=== PATIENT | male | born 1955 | race Caucasian/White ===

== ENCOUNTER 2025-06-18 10:59 | Inpatient (IN) | payer MEDICARE, SELFPAY ==
--- NOTE | ~2025-06-18 | CT_ITS ---
CT HEAD NON-CONTRAST Clinical History: AMS Comparison: None Technique: Unenhanced axial images skull base to vertex Coronal, sagittal reformats CT images acquired with automatic exposure control for dose reduction DLP: 605 mGy-cm Findings: Sulci, ventricles: Unremarkable. No intracerebral hemorrhage. No evidence acute territorial infarct. No mass effect, midline shift. Bony calvarium intact. Visualized paranasal sinuses: Clear. Mastoid air cells: Clear. IMPRESSION: 1. No acute intracranial findings. Reviewed, dictated and finalized at location R.
--- NOTE | ~2025-06-18 | US_ITS ---
US renal BI 06/18/2025 17:52 Procedure: Realtime transabdominal ultrasound of the kidneys and bladder. Indication: Renal failure Comparison: No prior studies for comparison. Findings: Renal echotexture is normal bilaterally without hydronephrosis, contour deforming mass or renal calculus. The right kidney measures 9.9 cm and left kidney measures 11 cm. Bladder within normal limits. Impression: 1: Unremarkable renal ultrasound. No stones, masses or hydronephrosis. Reviewed, dictated and finalized at location O. Impression: 1: Unremarkable renal ultrasound. No stones, masses or hydronephrosis.
--- NOTE | ~2025-06-18 | CT_ITS ---
EXAMINATION: CTA chest PE abdomen pel DATE: 06/18/2025 13:06 INDICATION: Weakness following long drive TECHNIQUE: Computed tomography (CT) pulmonary angiogram of the chest was performed with 100 mL Omnipaque-350 intravenous contrast. Additional 3D reconstructions utilizing coronal maximum intensity projection (MIP) were performed. CT of the abdomen and pelvis was performed with intravenous contrast utilizing the same contrast bolus following a short delay. Automated exposure control and iterative reconstruction technique were employed. The dose-length product was 1870.34 mGy-cm. COMPARISON: None FINDINGS: Chest: No pulmonary embolism.Mild emphysema. Mild dependent atelectasis in both lungs. Indeterminate 8-9 mm right lower lobe nodule. There are multiple additional smaller subpleural nodules, one in the lingula measuring 5 mm, 2 in the right middle lobe measuring 3-4 mm and one in the left lower lobe measuring 4-5 mm. No pneumonia, pulmonary edema, pleural effusion or pneumothorax. Heart size is normal. No pericardial effusion. Thoracic aorta is normal caliber with no dissection. No pathologically enlarged thoracic lymphadenopathy. Moderate thoracic spondylosis with bridging osteophytes at multiple levels consistent with diffuse idiopathic skeletal hyperostosis (DISH). Abdomen/pelvis: Cholecystectomy clips at the gallbladder fossa. Moderate atrophy at the upper pole of the left kidney. There are a few subcentimeter low-attenuation bilateral renal cysts. Splenomegaly measuring 15.5 cm in maximal length. Moderate fatty atrophy of the pancreas. Bilateral adrenal glands are normal. Bladder is normal. Mild prostatomegaly measuring 4.6 x 3.7 cm. Bowels including the appendix are normal. No free intraperitoneal gas or fluid. Severe lumbosacral and moderate lumbar spondylosis. IMPRESSION: 1. No pulmonary embolism, other acute cardiopulmonary disease or acute intra- abdominal/pelvic process. 2. Mild emphysema with several scattered pulmonary nodules the largest measuring 8-9 mm in the right lower lobe. Recommend 3 month follow-up low-dose noncontrast chest CT. Correlation with any prior outside imaging if available would also be helpful. 3. Splenomegaly. 4. Prostatomegaly. Reviewed, dictated and finalized at location A. IMPRESSION: 1. No pulmonary embolism, other acute cardiopulmonary disease or acute intra-ab dominal/pelvic process. 2. Mild emphysema with several scattered pulmonary nodules the largest measurin g 8-9 mm in the right lower lobe. Recommend 3 month follow-up low-dose noncontr ast chest CT. Correlation with any prior outside imaging if available would als o be helpful. 3. Splenomegaly. 4. Prostatomegaly.
--- NOTE | ~2025-06-18 | XR_ITS ---
EXAMINATION: XR chest 1V portable COMPARISON: No comparisons available. HISTORY: AMS FINDINGS: The lungs are clear, no effusion. No pneumothorax. Heart is normal size. Mediastinal and hilar contours are within normal limits. Bony thorax no acute abnormality. Miscellaneous: None Impression: No acute cardiopulmonary abnormality. Reviewed, dictated and finalized at location A. Impression: No acute cardiopulmonary abnormality.
[2025-06-18 11:01] VITALS: BP 158/67; PULSE 115; RESP 13; TEMP 36.7; O2SAT 98
--- NOTE | 2025-06-18 11:16 | ECG_ITS ---
Test Date: 2025-06-18 11:41:08 Measurements Intervals [place] Rate: 104 P: 30 [place]: 158 QRS: -15 QRSD: 82 T: 42 QT: 317 QTc: 419 Interpretive Statements SINUS TACHYCARDIA CONSIDER PREVIOUS INFERIOR INFARCTION ABNORMAL ECG No previous ECG available for comparison Electronically Signed On 06-18-2025 12:37:33 CDT by Connor Hess M.D.
[2025-06-18 11:52] LABS: Fractional Inspired Oxygen 21 %; HCO3 VBG 22.1 mEq/l (24.0-30.0); PCO2 VBG 39.0 mmHg (42.0-48.0); PO2 VBG 28.3 mmHg (35.0-45.0); pH VBG 7.371 (7.300-7.400)
[2025-06-18 11:58] LABS: Liters per Minute 0.0 LPM
[2025-06-18 12:03] LABS: Hematocrit 30.0 % (42.0-52.0); Hemoglobin 9.8 g/dL (14.0-18.0); Immature Granulocyte Percent A 0.7 % (0-0.5); Lymphocytes Absolute Auto 0.58 K/mm3 (0.9-3.2); Mean Corpuscular HGB Conc 32.7 g/dl (32-36); Mean Corpuscular Hemoglobin 31.4 pg (26-34); Mean Corpuscular Volume 96.2 fl (80-100); Nucleated Red Blood Cells Absolute Auto 0.000 K/mm3 (0.0-0.012); Nucleated Red Blood Cells Perc 0.0 % (0.0-0.2); Platelet Count Result 253 k/mm3 (150-375); Red Blood Count 3.12 M/mm3 (4.6-6.20); White Blood Count 10.4 K/mm3 (4.5-10.0)
[2025-06-18] MEDS: SODIUM CHLORIDE 0.9% IV 1,000 ML 999 ML IV CONT (12:07)
[2025-06-18 12:21] LABS: INR 1.2; Prothrombin Time 15.1 Seconds (11.1-14.7)
[2025-06-18 12:22] LABS: Partial Thromboplastin Time 28.5 Seconds (22.3-36.8)
[2025-06-18 12:39] LABS: Alanine Aminotransferase 23 U/L (6-50); Albumin Level 3.9 g/dL (3.5-5.1); Alkaline Phosphatase 164 U/L (38-126); Anion Gap 11 mmol/L (4-12); Aspartate Amino Transferase 70 U/L (17-59); Bilirubin,Total 1.0 mg/dL (0.2-1.3); Blood Urea Nitrogen 40 mg/dL (9-20); Calcium 8.7 mg/dL (8.4-10.2); Carbon Dioxide 23 mmol/L (22-30); Chloride 98 mmol/L (98-107); Estimated CRCL calculation 28 ml/min; Estimated Glomerular Filt Rate 27; Glucose 473 mg/dL (65-110); Lipase 43 U/L (23-300); Magnesium 2.2 mg/dL (1.6-2.3); Potassium 4.4 mmol/L (3.4-5.0); Sodium 132 mmol/L (137-145); Total Protein 7.9 g/dL (6.3-8.2)
[2025-06-18 12:39] LABS: Influenza A QL RT-PCR Negative (Negative); Influenza B QL RT-PCR Negative (Negative); RSV RNA, RT-PCR Negative (Negative); SARS-CoV-2 RNA PCR Negative (Negative)
[2025-06-18 12:49] LABS: Troponin I < 0.012 ng/mL (0.000-0.034)
--- OUTSIDE RECORDS SUMMARY | 2025-06-18 12:58 | XMS_ITS | Encounter Summary ---
Author Organization [facility] Address [address] [place] [id number] Care Team Providers Care Microfilm Camera Operator Name Role Phone Arthru Powers MD Primary Care Provider [phone] Bethel Bailey MD Unavailable [phone] Reason for Visit * Reason Comments V Scheduling Outreach Encounter Details Date Type Department Care Team ([facility] st Contact Info) Description 12/28/2022 [facility] [address] [place] [address] Arthur Powers MD [address] [place] [address] [facility] Scheduling Outreach Social History Tobacco Use Types Packs/Day Years Used Date Smoking Tobacco: Every Day Cigarettes 0.8 35 Smokeless Tobacco: Never Alcohol Use Standard Drinks/Week Comments No 0 (1 standard drink = 0.6 oz pur e alcohol) PHQ-2 Answer Date Recorded Initial depression screening score: 0 11/02/2022 Interpersonal Safety Answer Date Record ed RETIRE In the past year, hav e you ever been physically hurt, threatened, controlled or made to feel afraid by someone close to you? No 06/13/2020 RETIRE Currently, are you in a relationship where you are being physically hurt, threatened, controlled or made to feel afraid? No 06/13/2020 Inadequate Housing Answer Date Recorded Social Determinants: Housing (Overall Score Help er) 0 05/06/2019 Sex and Gender Information Value Date Recorded Sex Assigned at Not on file Legal Sex Male 6:56 PM CDT Gender Identity Not on file Sexual Orientation Not on file documented as of this encounter Functional Status * RETIRED Are you deaf or do you have serious difficulty hearing? Answer Date of Assessment Author No 06/20/2020 2:05 PM CDT Lita Morrow RN * RETIRED Are you blind or do you have serious difficulty seeing, even when wearing glasses? Answer Date of Assessment Author No 06/20/2020 2:05 PM CDT Lita Morrow RN documented as of this encounter Plan of Treatment Upcoming Encounters Date Type Department Care Team (Late st Contact Info) Description 07/16/2025 9:00 AM CDT Office Visit [facility] [address] [place] [address] Arthur Powers MD [address] [place], [place] [id number] documented as of this encounter Visit Diagnoses Not on filedocumented in this encounter Additional Health Concerns Assessment Noted Time A Body Mass Index follow-up plan has been documented for the patient 05/25/2022 8:51 AM CDT documented as of this encounter Care Teams Microfilm Camera Operator Relationship Specialty Start Date End Date Arthur Powers MD [address] [place] [address] PCP - General Internal Medicine 05/15/12 Bethel Bailey MD [address] [place] [address] Restaurant Assistant Manager Nephrology 05/01/19 Podiatry 09/09/15 documented as of this encounter
--- OUTSIDE RECORDS SUMMARY | 2025-06-18 12:58 | XMS_ITS | Encounter Summary ---
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); Type 2 diabetes mellitus with diabetic neuropathy, without long-term current use of insulin (CMD) Social History Tobacco Use Types Packs/Day Years Used Date Smoking Tobacco: Every Day Cigarettes 0.8 35 Smokeless Tobacco: Never Alcohol Use Standard Drinks/Week Comments No 0 (1 standard drink = 0.6 oz pur e alcohol) PHQ-2 Answer Date Recorded PHQ-2 Score 0 10/19/2019 Interpersonal Safety Answer Date Record ed RETIRE [...] Morrow RN documented as of this encounter Ordered Prescriptions Prescription Sig Dispense Quantity Refills Last Filled Start Date End Date acetaminophen-code ine (TYLENOL #4) 300-60 MG per tabletIndications: 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 Reorder 10/03/2020 10/06/2020 documented as of this encounter Additional Health Concerns Assessment Noted Time A Body Mass Index follow-up plan has been documented for the patient 10/19/2019 2:33 PM FACILITY WORKER documented as of this encounter Care Teams Health Care Sanitary Technician Relationship Specialty Start Date End Date Arthur Powers MD [address] [place] [address] PCP - General Internal Medicine 05/15/12 Bethel Bailey MD [address] [place] [address] [facility] 05/01/19 Podiatry 09/09/15 documented as of this encounter
--- OUTSIDE RECORDS SUMMARY | 2025-06-18 12:58 | XMS_ITS | Clinical Summary ---
Author Organization [facility] Address [address] [place] [id number] Care Team Providers Care Sandblaster Stone Name Role Phone Arthur Powers MD Primary Care Provider [phone] Bethel Bailey MD Unavailable [phone] Allergies Active Allergy Reactions Criticality Noted Date Comments Sulfamethoxazole W/Trimethoprim NAUSEA 02/04/2017 Celecoxib Hydrocodone Mobic Naproxen Nsaids Other (See Comments) 02/16/2017 D/t kidney function Prednisone Relafen Medications Lancet Devices (AUTO-LANCETS) MISC One Touch Delica Lancets. Test Blood Sugar Daily. 100 each 3 10/26/19 13 Active blood glucose (ONETOUCH VERIO) test strip Test blood sugar 2 times daily as directed. Diagnosis: E11.9. Meter: one touch verio 200 each 2 02/23/20 17 Active naLOXone (NARCAN) 4 MG/0.1ML nasal liquid Gage the content of 1 device into 1 nostril. Call 911. May repeat with 2nd device in alternate nostril if no response in 2-3 minutes. 2 each 1 06/13/20 24 Active ondansetron (Zofran) 4 MG tablet Take twice for nausea per prep instructions 2 tablet 07/05/20 24 Active Na Sulfate-K Sulfate-Mg Sulf (Suprep Bowel Prep Kit) 17.5-3.13-1.6 GM/177ML Solution Take 354 mLs by mouth as directed. 1 kit 09/06/20 24 Active sildenafil (VIAGRA) 100 MG tabletIndicati ons:Erectile dysfunction, unspecified erectile dysfunction type Take 1 tablet by mouth as needed for Erectile Dysfunction. 90 tablet 3 09/12/20 24 Active albuterol 108 (90 Base) MCG/ACT inhaler Inhale 2 puffs into the lungs every 4 hours as needed for Wheezing or Shortness of Breath. 1 each 10/08/19 25 Active furosemide (LASIX) 40 MG tablet Take 1 tablet by mouth daily. 90 tablet 3 03/26/20 25 Active acetaminophen- codeine (TYLENOL #4) 300-60 MG per tabletIndicati ons:Type 2 diabetes mellitus with diabetic neuropathy, without long-term current use of insulin (CMD),Rheumato id arthritis involving both shoulders with positive rheumatoid factor (CMD) TAKE 1 TABLET BY MOUTH THREE TIMES DAILY NEEDED FOR PAIN 90 tablet 04/30/20 25 Active metFORMIN (GLUCOPHAGE) 500 MG tabletIndicati ons:Type 2 diabetes mellitus with diabetic neuropathy, without long-term current use of insulin (CMD) TAKE 2 TABLETS BY MOUTH IN THE MORNING AND 1 TABLET IN THE EVENING 270 tablet 06/14/20 25 Active metFORMIN (GLUCOPHAGE) 500 MG tabletIndicati ons:Type 2 diabetes mellitus with diabetic neuropathy, without long-term current use of insulin (CMD) 2 tab (1000mg) in am 1 tab (500mg) in pm 270 tablet 1 12/19/19 25 025 Discontinued Active Problems Problem Noted Date Diagnosed Date Hyperkeratosis 03/07/2025 Assessment & Plan (03/07/2025 7:21 PM CDT): Advanced hyperkeratosis was debrided and then an Unna boot was applied to the leg Cellulitis of left lower extremity 03/07/2025 Assessment & Plan (03/07/2025 7:27 PM CDT): Monitor: The patient conditionnewly identified. Evaluation: Reviewed recent labs/diagnostic tests with the patient. Assessment/Treatment: Update treatment regimen per encounter note. Statin intolerance 12/18/2024 Assessment & Plan (12/18/2024 9:19 AM CDT): Monitor: The problem is unchanged. Evaluation: No labs/tests required today. Assessment/Treatment: Continue current treatment/monitoring regimen. Tophaceous gout 01/03/2024 Assessment & Plan (01/03/2024 11:02 AM CDT): Monitor: The problem is newly identified. Evaluation: Labs/tests ordered, see encounter summary. Assessment/Treatment: Update treatment regimen per encounter summary Open wound of right lower extremity 12/20/2023 Assessment & Plan (01/03/2024 5:16 PM CDT): Monitor: The problem is stable. Evaluation: No labs/tests required today. Assessment/Treatment: Continue current treatment/monitoring regimen. and Update treatment regimen per encounter summary Assessment & Plan (12/20/2023 11:18 AM CDT): Monitor: The problem is newly identified. Evaluation: No labs/tests required today. Assessment/Treatment: Update treatment regimen per encounter summary Fall at home 11/24/2023 Assessment & Plan (11/24/2023 12:42 PM [employer]): There is an area of abrasion which was debrided and cleaned up and a new dressing which included Silvadene and polymer dressing was applied. Other hyperlipidemia 09/22/2023 Assessment & Plan (03/26/2025 9:17 AM CDT): Monitor: The problem is unchanged. Evaluation: No labs/tests required today. Assessment/Treatment: Continue current treatment/monitoring regimen. Assessment & Plan (09/12/2024 4:36 PM [employer]): Monitor: The problem is unchanged. Evaluation: No labs/tests required today. Assessment/Treatment: Continue current treatment/monitoring regimen. Assessment & Plan (06/05/2024 9:12 AM CDT): Monitor: The problem is unchanged. Evaluation: No labs/tests required today. Assessment/Treatment: Continue current treatment/monitoring regimen. Assessment & Plan (09/22/2023 10:02 AM [employer]): Monitor: The problem is unchanged. Evaluation: No labs/tests required today. Assessment/Treatment: Continue current treatment/monitoring regimen. Stage 3b chronic kidney disease (CMD) 06/22/2023 Assessment & Plan (10/10/2024 11:09 AM [employer]): Monitor: The problem is stable. Evaluation: Reviewed recent labs/tests with the patient. Assessment/Treatment: Continue current treatment/monitoring regimen. Assessment & Plan (11/24/2023 12:39 PM [employer]): Monitor: The problem is stable. Evaluation: No labs/tests required today. Assessment/Treatment: Continue current treatment/monitoring regimen. Assessment & Plan (06/22/2023 5:34 PM CDT): Monitor: The problem is stable. Evaluation: No labs/tests required today. Assessment/Treatment: Continue current treatment/monitoring regimen. Venous stasis of lower extremity 06/01/2023 Assessment & Plan (03/11/2025 4:47 PM CDT): Monitor: The problem is unchanged. Evaluation: No labs/tests required today. Assessment/Treatment: Continue current treatment/monitoring regimen. Assessment & Plan (07/04/2023 7:38 PM CDT): Monitor: The problem is unchanged. Evaluation: No labs/tests required today. Assessment/Treatment: Continue current treatment/monitoring regimen. Assessment & Plan (06/22/2023 5:09 PM CDT): Application of Unna boot and compression bandage was described. The patient was informed of the nature of the procedure, risks and benefits, and agreed to proceed. Application of left Unna boots First the left leg(s) was(were) debrided and cleaned of necrotic tissue and the leg(s) was(were) prepped for application of the boot(s). Next a dome paste dressing was evenly applied to the leg(s). Open ulcers were packed and covered with polymer dressing as were areas where drainage through the skin was apparent. Next a soft dressing was applied. And finally Coban was applied. The patient was instructed on the care of the dressing, to call if there was any discomfort, skin color change, or excessive drainage. Patient was instructed to return within a week for inspection and possible reapplication. Assessment & Plan (06/01/2023 9:14 AM CDT): Improved, Unna boot Application of Unna boot and compression bandage was described. The patient was informed of the nature of the procedure, risks and benefits, and agreed to proceed. Application of left Unna boots First the left leg(s) was(were) debrided and cleaned of necrotic tissue and the leg(s) was(were) prepped for application of the boot(s). Next a dome paste dressing was evenly applied to the leg(s). Open ulcers were packed and covered with polymer dressing as were areas where drainage through the skin was apparent. Next a soft dressing was applied. And finally Coban was applied. The patient was instructed on the care of the dressing, to call if there was any discomfort, skin color change, or excessive drainage. Patient was instructed to return within a week for inspection and possible reapplication. Lymphedema of left leg 05/24/2023 Assessment & Plan (03/07/2025 7:27 PM CDT): Monitor: The patient conditionworsening. Evaluation: No diagnostic tests required today. Reviewed recent labs/diagnostic tests with the patient. Assessment/Treatment: Update treatment regimen per encounter note. Assessment & Plan (06/15/2023 8:51 AM CDT): Monitor: The problem is improving with treatment. Evaluation: No labs/tests required today. Assessment/Treatment: Update treatment regimen per encounter summary No unna boot today, leg debrided and dressed Assessment & Plan (05/24/2023 4:30 PM CDT): Monitor: The problem is worsening. Evaluation: No labs/tests required today. Assessment/Treatment: Unna boot applied Vasculogenic erectile dysfunction 11/16/2022 Assessment & Plan (11/16/2022 1:58 PM [employer]): Monitor: The problem is improving with treatment. Evaluation: No labs/tests required today. Assessment/Treatment: Continue current treatment/monitoring regimen. Codeine use disorder, moderate, dependence (CMD) 10/30/2021 Assessment & Plan (10/10/2024 11:09 AM [employer]): Monitor: The problem is stable. Evaluation: No labs/tests required today. Reviewed recent labs/tests with the patient. Assessment/Treatment: Continue current treatment/monitoring regimen. Assessment & Plan (11/24/2023 12:39 PM [employer]): Monitor: The problem is stable. Evaluation: No labs/tests required today. Assessment/Treatment: Continue current treatment/monitoring regimen. Assessment & Plan (11/02/2022 10:11 AM [employer]): Monitor: The problem is unchanged. Evaluation: No labs/tests required today. Assessment/Treatment: Continue current treatment/monitoring regimen. Assessment & Plan (10/30/2021 12:35 PM [employer]): Monitor: The problem is unchanged. Evaluation: No labs/tests required today. Assessment/Treatment: Continue current treatment/monitoring regimen. Stage 3a chronic kidney disease (CMD) 01/15/2021 Assessment & Plan (11/02/2022 10:11 AM [employer]): Monitor: The problem is stable. Evaluation: Reviewed recent labs/tests with the patient. Assessment/Treatment: Managed by specialist. Assessment & Plan (10/30/2021 12:15 PM [employer]): Monitor: The problem is unchanged. Evaluation: Labs/tests ordered, see encounter summary. Assessment/Treatment: Continue current treatment/monitoring regimen. Assessment & Plan (01/15/2021 12:08 PM CDT): Monitor: The patient's CKD is unchanged. Evaluation: No diagnostic tests required today. Assessment/Treatment: Continue current treatment/monitoring regimen. Continue current treatment regimen. Condition will be reassessed per progress note Nonspecific abnormal finding in stool contents 0 06/06/2020 Sebaceous cyst 12/18/2018 Pain, dental 12/20/2016 Venous stasis ulcer of leg without varicose vein s (CMD) 04/16/2014 Assessment & Plan (03/11/2025 4:49 PM CDT): Monitor: The problem is improving with treatment. Evaluation: No labs/tests required today. Assessment/Treatment: The Unna boot was removed, the leg was found to be much improved, some additional debridement of scales revealed healthy skin and no active drainage Assessment & Plan (10/10/2024 11:09 AM [employer]): Monitor: The problem is stable. Evaluation: No labs/tests required today. Assessment/Treatment: Continue current treatment/monitoring regimen. Assessment & Plan (11/24/2023 12:39 PM [employer]): Monitor: The problem is newly identified. Evaluation: No labs/tests required today. Assessment/Treatment: Continue current treatment/monitoring regimen. Assessment & Plan (07/04/2023 7:39 PM CDT): Monitor: The problem is improving with treatment. Evaluation: No labs/tests required today. Assessment/Treatment: Update treatment regimen per encounter summary Application of Unna boot and compression bandage was described. The patient was informed of the nature of the procedure, risks and benefits, and agreed to proceed. Application of right Unna boots First the right leg(s) was(were) debrided and cleaned of necrotic tissue and the leg(s) was(were) prepped for application of the boot(s). Next a dome paste dressing was evenly applied to the leg(s). Open ulcers were packed and covered with polymer dressing as were areas where drainage through the skin was apparent. Next a soft dressing was applied. And finally Coban was applied. The patient was instructed on the care of the dressing, to call if there was any discomfort, skin color change, or excessive drainage. Patient was instructed to return within a week for inspection and possible reapplication. Assessment & Plan (07/02/2023 9:45 AM CDT): Monitor: The problem is improving with treatment. Evaluation: No labs/tests required today. Assessment/Treatment: Application of Unna boot and compression bandage was described. The patient was informed of the nature of the procedure, risks and benefits, and agreed to proceed. Application of left Unna boots First the left leg(s) was(were) debrided and cleaned of necrotic tissue and the leg(s) was(were) prepped for application of the boot(s). Next a dome paste dressing was evenly applied to the leg(s). Open ulcers were packed and covered with polymer dressing as were areas where drainage through the skin was apparent. Next a soft dressing was applied. And finally Coban was applied. The patient was instructed on the care of the dressing, to call if there was any discomfort, skin color change, or excessive drainage. Patient was instructed to return within a week for inspection and possible reapplication. Assessment & Plan (06/06/2023 5:37 PM CDT): Monitor: The problem is improving with treatment. Evaluation: No labs/tests required today. Assessment/Treatment: Continue current treatment/monitoring regimen. Application of Unna boot and compression bandage was described. The patient was informed of the nature of the procedure, risks and benefits, and agreed to proceed. Application of left Unna boots First the left leg(s) was(were) debrided and cleaned of necrotic tissue and the leg(s) was(were) prepped for application of the boot(s). Next a dome paste dressing was evenly applied to the leg(s). Open ulcers were packed and covered with polymer dressing as were areas where drainage through the skin was apparent. Next a soft dressing was applied. And finally Coban was applied. The patient was instructed on the care of the dressing, to call if there was any discomfort, skin color change, or excessive drainage. Patient was instructed to return within a week for inspection and possible reapplication. Assessment & Plan (11/02/2022 10:11 AM [employer]): Monitor: The problem is unchanged. Evaluation: No labs/tests required today. Assessment/Treatment: Continue current treatment/monitoring regimen. Assessment & Plan (10/30/2021 12:17 PM [employer]): Monitor: The problem is improving with treatment. Evaluation: Labs/tests ordered, see encounter summary. Assessment/Treatment: Continue current treatment/monitoring regimen. Assessment & Plan (01/15/2021 12:08 PM CDT): Monitor: The patient's soft tissue ulcer is unchanged. Evaluation: No diagnostic tests required today. Assessment/Treatment: Continue current treatment/monitoring regimen. Condition will be reassessed per progress note Type 2 diabetes mellitus wit h diabetic neuropathy, without long-term current use of insulin (CMD) 05/15/2012 Assessment & Plan (03/26/2025 9:17 AM CDT): Monitor: The problem is stable. Evaluation: Labs/tests ordered, see encounter summary. Reviewed recent labs/tests with the patient. Assessment/Treatment: Continue current treatment/monitoring regimen. Assessment & Plan (03/11/2025 4:48 PM CDT): Monitor: The problem is stable. Evaluation: Reviewed recent labs/tests with the patient. Assessment/Treatment: Continue current treatment/monitoring regimen. Assessment & Plan (12/18/2024 9:20 AM CDT): Monitor: The problem is stable. Evaluation: Labs/tests ordered, see encounter summary. Reviewed recent labs/tests with the patient. Assessment/Treatment: Update treatment regimen per encounter summary Assessment & Plan (10/10/2024 11:09 AM [employer]): Monitor: The problem is stable. Evaluation: Reviewed recent labs/tests with the patient. Assessment/Treatment: Continue current treatment/monitoring regimen. Assessment & Plan (09/12/2024 4:39 PM [employer]): Monitor: The problem is stable. Evaluation: Reviewed recent labs/tests with the patient. Assessment/Treatment: Continue current treatment/monitoring regimen. Assessment & Plan (06/05/2024 9:15 AM CDT): Monitor: The problem is stable. Evaluation: Reviewed recent labs/tests with the patient. Assessment/Treatment: Continue current treatment/monitoring regimen. Assessment & Plan (01/03/2024 5:18 PM CDT): Monitor: The problem is stable. Evaluation: Reviewed recent labs/tests with the patient. Assessment/Treatment: Continue current treatment/monitoring regimen. Assessment & Plan (12/20/2023 11:21 AM CDT): Monitor: The problem is stable. Evaluation: No labs/tests required today. Assessment/Treatment: Continue current treatment/monitoring regimen. Assessment & Plan (09/22/2023 10:01 AM [employer]): Monitor: The problem is stable. Evaluation: Labs/tests ordered, see encounter summary. Reviewed recent labs/tests with the patient. Assessment/Treatment: Continue current treatment/monitoring regimen. Assessment & Plan (07/04/2023 7:38 PM CDT): Monitor: The problem is stable. Evaluation: No labs/tests required today. Assessment/Treatment: Continue current treatment/monitoring regimen. Assessment & Plan (06/22/2023 5:10 PM CDT): Monitor: The problem is unchanged. Evaluation: No labs/tests required today. Assessment/Treatment: Continue current treatment/monitoring regimen. Assessment & Plan (06/15/2023 8:50 AM CDT): Monitor: The problem is stable. Evaluation: No labs/tests required today. Reviewed recent labs/tests with the patient. Assessment/Treatment: Continue current treatment/monitoring regimen. Assessment & Plan (06/06/2023 5:36 PM CDT): Monitor: The problem is unchanged. Evaluation: No labs/tests required today. Assessment/Treatment: Continue current treatment/monitoring regimen. Assessment & Plan (06/01/2023 9:14 AM CDT): Monitor: The problem is unchanged. Evaluation: No labs/tests required today. Assessment/Treatment: Continue current treatment/monitoring regimen. Assessment & Plan (05/24/2023 4:28 PM CDT): Monitor: The problem is unchanged. Evaluation: No labs/tests required today. Assessment/Treatment: Continue current treatment/monitoring regimen Assessment & Plan (02/01/2023 9:14 AM CDT): Monitor: The problem is unchanged. Evaluation: Labs/tests ordered, see encounter summary. Reviewed recent labs/tests with the patient. Assessment/Treatment: Continue current treatment/monitoring regimen. Assessment & Plan (11/16/2022 1:42 PM [employer]): Monitor: The problem is stable. Evaluation: No labs/tests required today. Assessment/Treatment: Continue current treatment/monitoring regimen. Assessment & Plan (08/23/2022 10:10 AM [employer]): Monitor: The problem is unchanged. Evaluation: Reviewed recent labs/tests with the patient. Assessment/Treatment: Continue current treatment/monitoring regimen. Assessment & Plan (05/25/2022 8:48 AM CDT): Monitor: The problem is stable. Evaluation: Reviewed recent labs/tests with the patient. Assessment/Treatment: Continue current treatment/monitoring regimen. Hypertension Assessment & Plan (03/26/2025 9:17 AM CDT): Monitor: The problem is unchanged. Evaluation: No labs/tests required today. Assessment/Treatment: Continue current treatment/monitoring regimen. Assessment & Plan (03/11/2025 4:47 PM CDT): Monitor: The problem is unchanged. Evaluation: No labs/tests required today. Assessment/Treatment: Continue current treatment/monitoring regimen. Assessment & Plan (12/18/2024 9:19 AM CDT): Monitor: The problem is unchanged. Evaluation: labs/tests required today. Assessment/Treatment: Continue current treatment/monitoring regimen. Assessment & Plan (09/12/2024 4:39 PM [employer]): Monitor: The problem is unchanged. Evaluation: No labs/tests required today. Assessment/Treatment: Continue current treatment/monitoring regimen. Assessment & Plan (06/05/2024 9:12 AM CDT): Monitor: The problem is unchanged. Evaluation: No labs/tests required today. Assessment/Treatment: Continue current treatment/monitoring regimen. Assessment & Plan (09/22/2023 10:02 AM [employer]): Monitor: The problem is unchanged. Evaluation: No labs/tests required today. Assessment/Treatment: Continue current treatment/monitoring regimen. Assessment & Plan (06/30/2023 10:28 PM CDT): Monitor: The problem is unchanged. Evaluation: No labs/tests required today. Assessment/Treatment: Continue current treatment/monitoring regimen. Assessment & Plan (06/22/2023 5:09 PM CDT): Monitor: The problem is unchanged. Evaluation: No labs/tests required today. Assessment/Treatment: Continue current treatment/monitoring regimen. Assessment & Plan (06/15/2023 8:49 AM CDT): Monitor: The problem is unchanged. Evaluation: No labs/tests required today. Assessment/Treatment: Continue current treatment/monitoring regimen. Assessment & Plan (06/01/2023 9:15 AM CDT): Monitor: The problem is unchanged. Evaluation: No labs/tests required today. Assessment/Treatment: Continue current treatment/monitoring regimen. Assessment & Plan (05/24/2023 4:27 PM CDT): Monitor: The problem is unchanged. Evaluation: No labs/tests required today. Assessment/Treatment: Continue current treatment/monitoring regimen. Assessment & Plan (02/01/2023 9:12 AM CDT): Monitor: The problem is unchanged. Evaluation: No labs/tests required today. Assessment/Treatment: Continue current treatment/monitoring regimen. Assessment & Plan (11/16/2022 1:39 PM [employer]): Monitor: The problem is unchanged. Evaluation: No labs/tests required today. Assessment/Treatment: Continue current treatment/monitoring regimen. Assessment & Plan (08/23/2022 10:09 AM [employer]): Monitor: The problem is unchanged. Evaluation: No labs/tests required today. Assessment/Treatment: Continue current treatment/monitoring regimen. Assessment & Plan (05/25/2022 8:48 AM CDT): Monitor: The problem is unchanged. Evaluation: No labs/tests required today. Assessment/Treatment: Continue current treatment/monitoring regimen. Assessment & Plan (10/30/2021 12:15 PM [employer]): Monitor: The problem is unchanged. Evaluation: No labs/tests required today. Assessment/Treatment: Continue current treatment/monitoring regimen. RHA (rheumatoid arthritis) (CMD) Assessment & Plan (10/10/2024 11:09 AM [employer]): Monitor: The problem is stable. Evaluation: Reviewed recent labs/tests with the patient. Assessment/Treatment: Continue current treatment/monitoring regimen. Assessment & Plan (09/12/2024 4:40 PM [employer]): Monitor: The problem is stable. Evaluation: Reviewed recent labs/tests with the patient. Assessment/Treatment: Continue current treatment/monitoring regimen. Assessment & Plan (11/24/2023 12:39 PM [employer]): Monitor: The problem is stable. Evaluation: No labs/tests required today. Assessment/Treatment: Continue current treatment/monitoring regimen. Assessment & Plan (11/02/2022 10:11 AM [employer]): Monitor: The problem is unchanged. Evaluation: No labs/tests required today. Assessment/Treatment: Continue current treatment/monitoring regimen. Assessment & Plan (05/25/2022 8:48 AM CDT): Monitor: The problem is improving with treatment. Evaluation: No labs/tests required today. Assessment/Treatment: Continue current treatment/monitoring regimen. Assessment & Plan (10/30/2021 12:17 PM [employer]): Monitor: The problem is improving with treatment. Evaluation: No labs/tests required today. Assessment/Treatment: Continue current treatment/monitoring regimen. Assessment & Plan (01/15/2021 12:08 PM CDT): Monitor: The patient's autoimmune/connective tissue disorder is unchanged. Evaluation: No diagnostic tests required today. Assessment/Treatment: Continue current treatment/monitoring regimen. Condition will be reassessed per progress note Tobacco dependence Assessment & Plan (02/01/2023 9:12 AM CDT): Monitor: The problem is unchanged. Evaluation: No labs/tests required today. Assessment/Treatment: Reducing packs per week Resolved Problems Problem Noted Date Diagnosed Date Resolved Date Cellulitis and abscess of trunk 10/09/2018 06/06/2020 Productive cough 07/30/2017 12/29/2017 Acute pancreatitis (CMD) 02/22/201710/2016 Cellulitis and abscess of leg 01/31/2017 06/06/2020 Cellulitis 03/28/2014 12/29/2017 Back pain 09/21/2012 12/29/2017 Diabetic neuropathy (CMD) 08/21/2012 Cataract 06/06/2020 Encounters Date Type Department Care Team Description 06/14[facility] [place] [address] [place] [address] Arthur Powers MD Refill Request 04/30/2025 [facility] [place] [address] [place] [address] Arthur Powers MD Refill Request 03/27/2025 [facility] [address] [place] [address] Arthur Powers MD 03/26/2025 9:00 AM CDT [facility] [address] [place] [address] Arthur Powers MD Type 2 diabetes mellitus with diabetic neuropathy, without long-term current use of insulin (CMD) (Primary Dx); Primary hypertension; Other hyperlipidemia; Stage 3b chronic kidney disease (CMD) 03/19/2025 [facility] [address] [place] [address] Arthur Powers MD Refill Request from Last 3 Months Immunizations Immunization Administration Dates Next Due Influenza, split virus, quadrivalent, PF 016 Pneumococcal conjugate PCV20 11/02/2022 Surgical History Surgery Date Site/Laterality Comments OCCULT BLOOD TEST TUBE 02/13/2011 EYE SURGERY CHOLECYSTECTOMY CATARACT EXTRACTION W/ INTRAOCULAR LENS IMPLANT around 2009 Bilateral COLONOSCOPY 06/20/2020 COLONOSCOPY 09/11/2024 Medical History Medical History Date Comments Diabetes mellitus (CMD) Hypertension Tobacco dependence Degenerative joint disease Rheumatoid arthritis(714.0) Chronic kidney disease Chronic pain Diabetic neuropathy (CMD) 08/21/2012 Family History Medical History Relation Comments Cancer Father Cataracts Father Diabetes Father Hypertension Father Macular degeneration Father Osteoarthritis Father Diabetes Mother Hyperlipidemia Mother Relation Status Comments Father Mother Social History Tobacco Use Types Packs/Day Years Used Date Smoking Tobacco: Every Day Cigarettes 0.8 35 Smokeless Tobacco: Never Tobacco Cessation:Ready to Q uit: Not Asked; Counseling Given: Not Answered Alcohol Use Standard Drinks/Week Comments No 0 (1 standard drink = 0.6 oz pur e alcohol) PHQ-2 Answer Date Recorded Initial depression screening score: 0 10/10/2024 Inadequate Housing Answer Date Recorded Social Determinants: Housing (Overall Score Help er) 0 05/06/2019 Interpersonal Safety Answer Date Record ed How often does anyone, jessica irby family and friends, physically hurt you? Never 09/11/2024 How often does anyone, jessica irby family and friends, insult or talk down to you? Never 09/11/2024 How often does anyone, jessica irby family and friends, threaten you with harm? Never 09/11/2024 How often does anyone, jessica irby family and friends, scream or curse at you? Never 09/11/2024 Sex and Gender Information Value Date Recorded Sex Assigned at Not on file Legal Sex Male 6:56 PM CDT Gender Identity Not on file Sexual Orientation Not on file Obstetrics History Last Filed Vital Signs Vital Sign Reading Time Taken Comments Blood Pressure 126/80 03/26/2025 8:47 AM CDT Pulse 84 03/26/2025 8:47 AM CDT Temperature 36.5 C (97.7 F) 10/10/2024 10:42 AM [employer] Respiratory Rate 18 10/10/2024 10:42 AM [employer] Oxygen Saturation 99% 03/26/2025 8:47 AM CDT Inhaled Oxygen Concentration - - Weight 93.4 kg (206 lb) 03/26/2025 8:47 AM CDT Height 172.7 cm (5' 8) 03/26/2025 8:47 AM CDT Body Mass Index 31.32 03/26/2025 8:47 AM CDT Plan of Treatment Upcoming Encounters Date Type Department Care Team (Late st Contact Info) Description 07/16/2025 9:00 AM CDT Office Visit [facility] [place] [address] [place] [address] Arthur Powers MD [address] [place] [address] Health Maintenance Due Date Last Done Comments DTaP/Tdap/Td Vaccine (1 - Tdap) 02/07/1976 CT Colonography 2002 Sigmoidoscopy 2002 Lung Cancer Screening 2007 Shingles Vaccine (1 of 2) 2007 Hepatitis C Screening 02/07/2008 Respiratory Syncytial Virus (RSV) Vaccine 60+ (1 - Risk 60-74 years 1-dose series) 2017 Fecal Occult Blood 02/01/2019 02/01/2018, 0 01/17/2018, 10/12/2016, Additional history exists Diabetes Foot Exam 04/20/2020 04/20/2019 Diabetes Eye Exam 05/02/2021 05/02/2020, , 05/02/2020, Additional history exists Abdominal Aortic Aneurysm (AAA) Screening 2022 COVID-19 Vaccine ( season) 2025 01/08/2021, 12/18/2020 Traditional Medicare - Medicare Wellness Visit 05/27/2025 06/05/2024, 05/24/2023, 05/25/2022, Additional history exists Diabetes A1C or GMI 09/26/2025 03/26/2025, 12/18/2024, 06/05/2024, Additional history exists Depression Screening 10/10/2025 10/10/2024 Microalbumin Ratio 12/18/2025 12/18/2024, 12/18/2024 Cologuard 02/22/2026 02/22/2023, 01/26, 02/22/2023, Additional history exists GFR 03/26/2026 03/26/2025, 11/25, 06/05/2024, Additional history exists Colonoscopy 09/11/2029 09/11/2024 Colorectal Cancer Screening 09/11/2029 Pneumococcal Vaccine 50+ Completed 11/02/2022 HPV Vaccine (No Doses Required) Completed Hepatitis A Vaccine Aged Out No longe r eligible based on patient's age to complete this topic Hepatitis B Vaccine (For Physician/APC Discussion) Aged Out No longer elig ible based on patient's age to complete this topic Meningococcal Serogroup B Vaccine Aged Out No longer eligible based on patient's age to complete this topic Meningococcal Vaccine Aged Out No jhon saima eligible based on patient's age to complete this topic Medical Devices Implanted Type Area Design Draftsman Device Identifier Shelf Expiration Date Model / Serial / Lot Device Hmst Rsl 360 235cm 11mm 2.8mm Chnl - [id number] Implanted:Qty : 1 on 06/20/2020 by Robert Shaw MD at [facility] Other Implant N/A: Colon [employer] . [id number] 03/31/2023 [id number] / / [id number] Device Hmst Rsl 360 235cm 11mm 2.8mm Chnl - [id number] Implanted:Qty : 1 on 06/20/2020 by Robert Shaw MD at [facility] Other Implant N/A: Colon [employer] . [id number] 03/31/2023 [id number] / / [id number] Device Hmst Rsl 360 235cm 11mm 2.8mm Chnl - [id number] Implanted:Qty : 1 on 06/20/2020 by Robert Shaw MD at [facility] Other Implant N/A: Colon [employer] . [id number] 03/31/2023 [id number] / / [id number] Procedures Procedure Name Priority Date/Time Associated Diagnosis Comments GLYCOHEMOGLOBIN Routine 03/26/2025 9:48 AM CDT Type 2 diabetes mellitus with diabetic neuropathy, without long-term current use of insulin (CMD) COMPREHENSIVE METABOLIC PANEL Routine 03/26/2025 9:48 AM CDT Type 2 diabetes mellitus with diabetic neuropathy, without long-term current use of insulin (CMD) Stage 3b chronic kidney disease (CMD) ANNUAL WELLNESS VISIT SUBSEQUENT VISIT W PPS Routine 06/05/2024 12:59 PM CDT Medicare annual wellness visit, subsequent COLOGUARD Routine 02/22/2023 OCCULT BLOOD TEST TUBE Routine 3:54 PM CDT Positive fecal occult blood test from Last 3 Months or Most Recently Relevant to Health Maintenance Results * (ABNORMAL) Glycohemoglobin (03/26/2025 9:48 AM CDT) Hemoglobin A1C 7.2(H) 4.5 - 5.6 % 03/27/2025 1:19 AM CDT [facility] Comment: Diabetic Screening Non Diabetic: <5.7% Increased Risk: 5.7-6.4% Diagnostic For Diabetes: >6.4% Diabetic Control A1C% eAG mg/dL 6.0 126 6.5 140 7.0 154 7.5 169 8.0 183 8.5 197 9.0 212 9.5 226 10.0 240 Blood VENOUS BLOOD SPECIMEN / Unknown Venipuncture / Unknown 03/26/2025 9:48 AM CDT 03/26/2025 10:49 PM CDT us Arthur Powers MD BKR LAB BLOOD ORDERABLES Final R esult [facility] [address] * (ABNORMAL) Comprehensive Metabolic Panel (03/26/2025 9:48 AM CDT) Fasting Status 03/27/2025 12:37 PM [facility] Sodium 141 135 - 145 mmol/L 03/27/2025 12:37 PM [facility] Potassium 4.1 3.4 - 5.1 mmol/L 03/27/2025 12:37 PM [facility] Chloride 108 97 - 110 mmol/L 03/27/2025 12:37 PM [facility] Carbon Dioxide 24 21 - 32 mmol/L 03/27/2025 12:37 PM [facility] Anion Gap 13 7 - 19 mmol/L 03/27/2025 12:37 PM [facility] Glucose 146(H) 70 - 99 mg/dL 03/27/2025 12:37 PM [facility] BUN 21(H) 6 - 20 mg/dL 03/27/2025 12:37 PM [facility] Creatinine 1.70(H) 0.67 - 1.17 mg/dL 03/27/2025 12:37 PM [facility] Glomerular Filtration Rate 43(L) >=60 03/27/2025 12:37 PM [facility] Comment:eGFR 30-59 mL/min/1. 73m2 = Moderate decrease in kidney function. Stage 3 CKD (chronic kidney disease) or moderate kidney disease. Estimated GFR calculated using the CKD-EPI-R (2020) equation that does not include race in the creatinine calculation. BUN/Cr 12 7 - 25 03/27/2025 12:37 PM [facility] Calcium 8.4 8.4 - 10.2 mg/dL 03/27/2025 12:37 PM [facility] Bilirubin, Total 0.4 0.2 - 1.0 mg/dL 03/27/2025 12:37 PM [facility] GOT/AST 10 <=37 Units/L 03/27/2025 12:37 PM [facility] GPT/ALT 10 <64 Units/L 03/27/2025 12:37 PM [facility] Alkaline Phosphatase 124(H) 45 - 117 Units/L 03/27/2025 12:37 PM CDT [facility] Albumin 3.3(L) 3.4 - 5.0 g/dL 03/27/2025 12:37 PM CDT [facility] Protein, Total 6.5 6.4 - 8.2 g/dL 03/27/2025 12:37 PM CDT [facility] Globulin 3.2 2.0 - 4.0 g/dL 03/27/2025 12:37 PM CDT [facility] A/G Ratio 1.0 1.0 - 2.4 03/27/2025 12:37 PM CDT [facility] Blood VENOUS BLOOD SPECIMEN / Unknown Venipuncture / Unknown 03/26/2025 9:48 AM CDT 03/26/2025 10:49 PM CDT us Arthur Powers MD BKR LAB BLOOD ORDERABLES Final R esult Performing Organization Address City/[facility]/ZIP Co de Phone Number [facility] [address] * COLOGUARD (02/22/2023) COLOGUARD Abnormal us Ext Result Console LABORATORY - EXTERNAL Final R esult * Occult Blood Test Tube (02/01/2018 3:54 PM CDT) Fecal Occult Bld Immunochem NEGATIVE NEGATIVE [facility] STOOL SPECIMEN / Unknown 02/01/2018 3:54 PM CDT 02/09/2018 3:55 PM CDT us Arthur Powers MD BODY FLUIDS AND STOOLS ORDERABLE S Final Result Performing Organization Address City/[facility] Co de Phone Number [facility] [address] [place] [address] from Last 3 Months or Most Recently Relevant to Health Maintenance Insurance MEDICARE MEDICARE Advance Directives * Full Resuscitation (Latest Code Status on File) Date Activated Date Inactivated Comments 09/11/2024 11:55 AM 09/11/2024 4:34 PM * Full Resuscitation Date Activated Date Inactivated Comments 06/20/2020 1:55 PM 06/20/2020 6:22 PM Care Teams Sandblaster Stone Relationship Specialty Start Date End Date Arthur Powers MD [address] [place] [address] PCP - General Internal Medicine 05/15/12 Bethel Bailey MD [address] [place] [address] Device Processing Engineer Nephrology 05/01/19 Podiatry 09/09/15
[2025-06-18 13:05] LABS: Thyroid Stimulating Hormone Reflex 1.740 uIU/mL (0.465-4.68)
[2025-06-18 13:08] LABS: Creatine Kinase 4074 U/L (55-170)
--- NOTE | 2025-06-18 13:33 | ED.GENADULT ---
HPI - General Adult General Chief complaint: Recheck/Abnormal Lab/Rx Stated complaint: increased glucose Time Seen by Provider: 06/18/25 11:10 History of Present Illness HPI narrative: This is a 70-year-old male presenting for generalized weakness. Patient spent the last week in [place] with his gambling. They have been driving back home across the country and he has been weak throughout drive. Two days ago he was too weak to get out of his chair and EMS was called which helped him get up but he did not seek medical care. Today were staying at a hotel when he sat in the [facility] for 12 hours straight. He did not get up. The patient is A&O x3 although somnolent. He is denying headache fevers chest pain difficulty breathing abdominal pain or urinary symptoms. He denies use of drugs or alcohol. He is a diabetic has been taking his medications although he did not take them today. Related Data Home Medications ?Medication ?Instructions ?Recorded ?Confirmed ?Last Taken ?Type acetaminophen 300 mg-codeine 60 mg 1 tablet PO TID 06/18/25 06/18/25 06/17/25 History tablet furosemide 40 mg tablet (Lasix) 40 mg PO DAILY 06/18/25 06/18/25 06/17/25 History metformin 500 mg tablet 500 mg PO BID 06/18/25 06/18/25 06/17/25 History Allergies Allergy/AdvReac Type Severity Reaction Status Date / Time hydrocodone Allergy Mild Swelling Verified 06/18/25 12:12 ketorolac (From Toradol) Allergy Unknown Unknown Verified 06/18/25 12:12 NSAIDS (Non-Steroidal Allergy Unknown Unknown Verified 06/18/25 12:12 Anti-Inflamma Exam Narrative: APPEARANCE: Patient appears older than his stated age, somnolent Head: atraumatic. EYES: EOMI, NOSE: Atraumatic NECK: Trachea midline RESPIRATORY: No increased rate of breathing clear to auscultation CARDIOVASCULAR: Tachycardic no peripheral edema ABDOMINAL: Non-distended soft nontender MUSCULOSKELETAl: No obvious deformities NEURO: Alert. Moving 4/4 extremities SKIN:: Chronic appearing scaling changes to the lower extremities with some unstageable ulcerations to the toes, does not appear actively infected. No skin breakdown the sacrum. PSYCHIATRIC: somnolent Course Vital Signs Vital signs: Vital Signs Temperature 98.1 F 06/18/25 11:01 Pulse Rate 115 H 06/18/25 11:01 Respiratory Rate 13 06/18/25 11:01 Blood Pressure 158/67 H 06/18/25 11:01 Pulse Oximetry 98 06/18/25 11:01 Oxygen Delivery Room Air 06/18/25 11:01 Temperature 98.1 F 06/18/25 11:01 Pulse Rate 99 06/18/25 16:08 Respiratory Rate 18 06/18/25 16:08 Blood Pressure 127/82 06/18/25 16:08 Pulse Oximetry 97 06/18/25 16:08 Oxygen Delivery Room Air 06/18/25 11:01 Medical Decision Making MDM Narrative Medical decision making narrative: -Course: 70-year-old male presenting with 2 days of generalized weakness. Patient tachycardic on arrival. Given 30 cc/kilogram bolus with improvement in heart rate. Patient has no localizing symptoms to help guide the workup. sepsis workup obtained. Laboratory studies significant for a CPK of 4000. Creatinine is 2.4 with BUN of 40 although no baseline is available as the patient is from [place], [place]. Glucose elevated at 426 without evidence of DKA/HHS. Urine not indicative infection. Viral swabs negative. CTA chest abdomen pelvis did not reveal any defnitive cause of his weakness. CT head was negative. Troponin negative an EKG without ischemic changes. Viral swabs negative. On re-evaluation the patient is still very weak, unable to ambulate. He will be admitted the hospital rhabdomyolysis / dehydration / acute kidney injury. Pt started on 250cc/LR for rhabdomyolysis. -DDX includes but is not limited to: Sepsis pneumonia UTI dehydration bacteremia viral illness -Co-morbidities complicating care: Diabetes -Social determinants of health: Patient lives with his , he walks around his own house unassisted but must use a scooter for anything greater than 100 ft. Denies use of drugs or alcohol -Hx from independent Sources: With bedside Vital Signs Vital Signs: Vital Signs Temperature 98.1 F 06/18/25 11:01 Pulse Rate 115 H 06/18/25 11:01 Respiratory Rate 13 06/18/25 11:01 Blood Pressure 158/67 H 06/18/25 11:01 Pulse Oximetry 98 06/18/25 11:01 Oxygen Delivery Room Air 06/18/25 11:01 Temperature 98.1 F 06/18/25 11:01 Pulse Rate 99 06/18/25 16:08 Respiratory Rate 18 06/18/25 16:08 Blood Pressure 127/82 06/18/25 16:08 Pulse Oximetry 97 06/18/25 16:08 Oxygen Delivery Room Air 06/18/25 11:01 Lab Data 06/18/25 11:53 06/18/25 11:54 Labs: Lab Results 06/18/25 06/18/25 06/18/25 Range/Units 11:06 11:49 11:53 WBC 10.4 H (4.5-10.0) K/mm3 RBC 3.12 L (4.6-6.20) M/mm3 Hgb 9.8 L (14.0-18.0) g/dL Hct 30.0 L (42.0-52.0) % MCV 96.2 (80-100) fl MCH 31.4 (26-34) pg MCHC 32.7 (32-36) g/dl RDW 13.7 (11.5-14.5) % Plt Count 253 (150-375) k/mm3 MPV 9.5 (7.4-10.4) fl Immature Gran % (Auto) 0.7 H (0-0.5) % Neut % (Auto) 88.4 H (45.5-73.1) % Lymph % (Auto) 5.6 L (18.3-44.2) % [place] % (Auto) 4.8 (2.6-8.5) % Eos % (Auto) 0.3 (0-4.4) % Baso % (Auto) 0.2 (0.2-1.2) % Lymph # (Auto) 0.58 L (0.9-3.2) K/mm3 [place] # (Auto) 0.5 (0.1-0.6) K/mm3 Eos # (Auto) 0.0 (0-0.3) K/mm3 Baso # (Auto) 0.0 (0.0-0.1) K/mm3 Abs Immat Gran (auto) 0.07 H (0.00-0.031) K/mm3 Absolute Neuts (auto) 9.2 H (1.3-6.7) K/mm3 Absolute Nucleated RBC 0.000 (0.0-0.012) K/mm3 Nucleated RBC % 0.0 (0.0-0.2) % PT 15.1 H (11.1-14.7) Seconds INR 1.2 APTT 28.5 (22.3-36.8) Seconds Sodium (137-145) mmol/L Potassium (3.4-5.0) mmol/L Chloride (98-107) mmol/L Carbon Dioxide (22-30) mmol/L Anion Gap (4-12) mmol/L BUN (9-20) mg/dL Creatinine (0.7-1.3) mg/dL Estim Creat Clear Calc ml/min Estimated GFR (59 - ) Glucose (65-110) mg/dL POC Capillary Glucose 426 H (65-105) mg/dl Lactic Acid 1.5 (0.7-2.0) mmol/L Calcium (8.4-10.2) mg/dL Phosphorus (2.5-4.5) mg/dL Magnesium (1.6-2.3) mg/dL Total Bilirubin (0.2-1.3) mg/dL AST (17-59) U/L ALT (6-50) U/L Alkaline Phosphatase (38-126) U/L Total Creatine Kinase (55-170) U/L Troponin I (0.000-0.034) ng/mL Total Protein (6.3-8.2) g/dL Albumin (3.5-5.1) g/dL Lipase (23-300) U/L TSH (Reflex) 1.740 (0.465-4.68) uIU/mL Urine Color (Yellow) Urine Appearance (Clear) Urine pH (5.0-9.0) Ur Specific [place] (1.001-1.035) Urine Protein (Negative) mg/dL Urine Glucose (UA) (Negative) mg/dL Urine Ketones (Negative) mg/dL Ur Blood (Man) (Negative) Urine Nitrate (Negative) Urine Bilirubin (Negative) Urine Urobilinogen (<2.0) mg/dL Leukocyte Esterase Rfl (Negative) AP/UL Urine RBC (0-2) /hpf Urine WBC (0-3) /hpf Ur Squamous Epith Cells (Few) /hpf Urine Bacteria /hpf Urine Casts Urine Opiates Screen (Negative) Urine Methadone Screen (Negative) Ur Barbiturates Screen (Negative) Ur Phencyclidine Scrn (Negative) Ur Amphetamine Screen (Negative) U Benzodiazepines Scrn (Negative) Urine Cocaine Screen (Negative) U Cannabinoids Screen (Negative) Ethyl Alcohol < 10 (<10) mg/dL Influenza A (RT-PCR) Negative (Negative) Influenza B (RT-PCR) Negative (Negative) RSV (RT-PCR) Negative (Negative) SARS-CoV-2 RNA (RT-PCR) Negative (Negative) 06/18/25 06/18/25 06/18/25 Range/Units 11:54 13:46 14:40 WBC (4.5-10.0) K/mm3 RBC (4.6-6.20) M/mm3 Hgb (14.0-18.0) g/dL Hct (42.0-52.0) % MCV (80-100) fl MCH (26-34) pg MCHC (32-36) g/dl RDW (11.5-14.5) % Plt Count (150-375) k/mm3 MPV (7.4-10.4) fl Immature Gran % (Auto) (0-0.5) % Neut % (Auto) (45.5-73.1) % Lymph % (Auto) (18.3-44.2) % [place] % (Auto) (2.6-8.5) % Eos % (Auto) (0-4.4) % Baso % (Auto) (0.2-1.2) % Lymph # (Auto) (0.9-3.2) K/mm3 [place] # (Auto) (0.1-0.6) K/mm3 Eos # (Auto) (0-0.3) K/mm3 Baso # (Auto) (0.0-0.1) K/mm3 Abs Immat Gran (auto) (0.00-0.031) K/mm3 Absolute Neuts (auto) (1.3-6.7) K/mm3 Absolute Nucleated RBC (0.0-0.012) K/mm3 Nucleated RBC % (0.0-0.2) % PT (11.1-14.7) Seconds INR APTT (22.3-36.8) Seconds Sodium 132 L (137-145) mmol/L Potassium 4.4 (3.4-5.0) mmol/L Chloride 98 (98-107) mmol/L Carbon Dioxide 23 (22-30) mmol/L Anion Gap 11 (4-12) mmol/L BUN 40 H (9-20) mg/dL Creatinine 2.41 H (0.7-1.3) mg/dL Estim Creat Clear Calc 28 ml/min Estimated GFR 27 L (59 - ) Glucose 473 H (65-110) mg/dL POC Capillary Glucose (65-105) mg/dl Lactic Acid (0.7-2.0) mmol/L Calcium 8.7 (8.4-10.2) mg/dL Phosphorus 3.4 (2.5-4.5) mg/dL Magnesium 2.2 (1.6-2.3) mg/dL Total Bilirubin 1.0 (0.2-1.3) mg/dL AST 70 H (17-59) U/L ALT 23 (6-50) U/L Alkaline Phosphatase 164 H (38-126) U/L Total Creatine Kinase 4074 H (55-170) U/L Troponin I < 0.012 < 0.012 (0.000-0.034) ng/mL Total Protein 7.9 (6.3-8.2) g/dL Albumin 3.9 (3.5-5.1) g/dL Lipase 43 (23-300) U/L TSH (Reflex) (0.465-4.68) uIU/mL Urine Color Yellow (Yellow) Urine Appearance Clear (Clear) Urine pH 5.5 (5.0-9.0) Ur Specific [place]ort 1.020 (1.001-1.035) Urine Protein 2+ H (Negative) mg/dL Urine Glucose (UA) 3+ H (Negative) mg/dL Urine Ketones Trace H (Negative) mg/dL Ur Blood (Man) 3+ H (Negative) Urine Nitrate Negative (Negative) Urine Bilirubin Negative (Negative) Urine Urobilinogen 1.0 (<2.0) mg/dL Leukocyte Esterase Rfl Negative (Negative) AP/UL Urine RBC 0-2 (0-2) /hpf Urine WBC 0-5 (0-3) /hpf Ur Squamous Epith Cells None seen (Few) /hpf Urine Bacteria None seen /hpf Urine Casts 3-5 Urine Opiates Screen Positive A (Negative) Urine Methadone Screen Negative (Negative) Ur Barbiturates Screen Negative (Negative) Ur Phencyclidine Scrn Negative (Negative) Ur Amphetamine Screen Negative (Negative) U Benzodiazepines Scrn Negative (Negative) Urine Cocaine Screen Negative (Negative) U Cannabinoids Screen Negative (Negative) Ethyl Alcohol (<10) mg/dL Influenza A (RT-PCR) (Negative) Influenza B (RT-PCR) (Negative) RSV (RT-PCR) (Negative) SARS-CoV-2 RNA (RT-PCR) (Negative) 06/18/25 Range/Units 16:24 WBC (4.5-10.0) K/mm3 RBC (4.6-6.20) M/mm3 Hgb (14.0-18.0) g/dL Hct (42.0-52.0) % MCV (80-100) fl MCH (26-34) pg MCHC (32-36) g/dl RDW (11.5-14.5) % Plt Count (150-375) k/mm3 MPV (7.4-10.4) fl Immature Gran % (Auto) (0-0.5) % Neut % (Auto) (45.5-73.1) % Lymph % (Auto) (18.3-44.2) % [place] % (Auto) (2.6-8.5) % Eos % (Auto) (0-4.4) % Baso % (Auto) (0.2-1.2) % Lymph # (Auto) (0.9-3.2) K/mm3 [place] # (Auto) (0.1-0.6) K/mm3 Eos # (Auto) (0-0.3) K/mm3 Baso # (Auto) (0.0-0.1) K/mm3 Abs Immat Gran (auto) (0.00-0.031) K/mm3 Absolute Neuts (auto) (1.3-6.7) K/mm3 Absolute Nucleated RBC (0.0-0.012) K/mm3 Nucleated RBC % (0.0-0.2) % PT (11.1-14.7) Seconds INR APTT (22.3-36.8) Seconds Sodium (137-145) mmol/L Potassium (3.4-5.0) mmol/L Chloride (98-107) mmol/L Carbon Dioxide (22-30) mmol/L Anion Gap (4-12) mmol/L BUN (9-20) mg/dL Creatinine (0.7-1.3) mg/dL Estim Creat Clear Calc ml/min Estimated GFR (59 - ) Glucose (65-110) mg/dL POC Capillary Glucose 362 H (65-105) mg/dl Lactic Acid (0.7-2.0) mmol/L Calcium (8.4-10.2) mg/dL Phosphorus (2.5-4.5) mg/dL Magnesium (1.6-2.3) mg/dL Total Bilirubin (0.2-1.3) mg/dL AST (17-59) U/L ALT (6-50) U/L Alkaline Phosphatase (38-126) U/L Total Creatine Kinase (55-170) U/L Troponin I (0.000-0.034) ng/mL Total Protein (6.3-8.2) g/dL Albumin (3.5-5.1) g/dL Lipase (23-300) U/L TSH (Reflex) (0.465-4.68) uIU/mL Urine Color (Yellow) Urine Appearance (Clear) Urine pH (5.0-9.0) Ur Specific Effort (1.001-1.035) Urine Protein (Negative) mg/dL Urine Glucose (UA) (Negative) mg/dL Urine Ketones (Negative) mg/dL Ur Blood (Man) (Negative) Urine Nitrate (Negative) Urine Bilirubin (Negative) Urine Urobilinogen (<2.0) mg/dL Leukocyte Esterase Rfl (Negative) AP/UL Urine RBC (0-2) /hpf Urine WBC (0-3) /hpf Ur Squamous Epith Cells (Few) /hpf Urine Bacteria /hpf Urine Casts Urine Opiates Screen (Negative) Urine Methadone Screen (Negative) Ur Barbiturates Screen (Negative) Ur Phencyclidine Scrn (Negative) Ur Amphetamine Screen (Negative) U Benzodiazepines Scrn (Negative) Urine Cocaine Screen (Negative) U Cannabinoids Screen (Negative) Ethyl Alcohol (<10) mg/dL Influenza A (RT-PCR) (Negative) Influenza B (RT-PCR) (Negative) RSV (RT-PCR) (Negative) SARS-CoV-2 RNA (RT-PCR) (Negative) ABG Data ABG results: 06/18/25 11:49 VBG pH 7.371 VBG pCO2 39.0 L VBG pO2 28.3 L VBG HCO3 22.1 L O2 Delivery Device Room air O2 Liters/Min 0.0 FiO2 21 Discharge Plan Discharge Clinical Impression: Rhabdomyolysis, Dehydration, Acute kidney injury Patient Disposition: Still a Patient Condition: Stable Patient Language: Japanese Prescriptions: No Action metformin 500 mg tablet 500 mg PO BID furosemide [Lasix] 40 mg tablet 40 mg PO DAILY acetaminophen-codeine 300-60 mg tablet 1 tablet PO TID Follow-up/Referrals: UNKNOWN,DOCTOR [Primary Care Provider]
[2025-06-18 13:49] VITALS: BP 148/66; PULSE 102; RESP 20; O2SAT 100
[2025-06-18] MEDS: LACTATED RINGERS 1,000 ML 999 ML IV CONT ×2 (14:00→14:01)
--- NOTE | 2025-06-18 14:00 | PC.NURSE ---
Pt. has venous stasis to bilateral lower extremities. Pt. states It's been like that for 15 years. Pt. is A&Ox3 (disoriented to situation. states he has been more drowsy this morning). Pt states his bottom has been hurting from sitting twice as much as normal. Thickened area of skin on sacrum. Blanchable. No open areas of skin. Pt. denies any exudate.
[2025-06-18 14:10] LABS: Add Urine Microscopic? YES; Appearance Urine Clear (Clear); Glucose Urine UA 3+ mg/dL (Negative); Leukocyte Esterase Ur Negative LEU/UL (Negative); Nitrate Urine Negative (Negative); Specific Grav Ur 1.020 (1.001-1.035)
[2025-06-18 14:27] LABS: Cannabinoid Screen Urine Negative (Negative)
--- NOTE | 2025-06-18 14:44 | ECG_ITS ---
Test Date: 2025-06-18 14:48:54 Measurements Intervals [place] Rate: 100 P: 55 SD: 158 QRS: -10 QRSD: 81 T: 38 QT: 322 QTc: 416 Interpretive Statements SINUS TACHYCARDIA POSSIBLE INFERIOR MYOCARDIAL INFARCTION , PROBABLY OLD [30 ms Q WAVE IN II/aVF] ABNORMAL RHYTHM ECG Compared to ECG 06/18/2025 11:41:08 No significant changes Electronically Signed On 06-18-2025 17:15:02 CDT by Kat Martinez M.D.
[2025-06-18] MEDS: LACTATED RINGERS 700 ML 999 ML IV CONT (15:10)
--- NOTE | 2025-06-18 15:20 | PC.NURSE ---
Dr. Cordero at bedside updating pt. and pt. .
[2025-06-18 15:52] LABS: Troponin I < 0.012 ng/mL (0.000-0.034)
[2025-06-18 16:08] VITALS: BP 127/82; PULSE 99; RESP 18; O2SAT 97
--- NOTE | 2025-06-18 16:21 | PC.NURSE ---
Pt. able to ambulate to commode with assist x1. Pt. urinate without difficulty in commode.
--- NOTE | 2025-06-18 17:16 | PM.IMHP ---
H&P: HPI History of Present Illness Date/Time: 06/18/25 17:16 Chief Complaint: Weakness Narrative: This is a 70-year-old male who presented with generalized weakness and confusion. Patient spent the last week in [place] with his . They have been driving back home across the country and has been feeling weak throughout the drive. Two days ago he was too weak to get out of chair and hence called EMS to get him up but he did not seek medical care. Today while sitting on the chair in the hotel and he was unable to get up and hence called EMS again. He denied any headache fever chest pain difficulty breathing abdominal pain or urinary symptoms. No use of drugs or alcohol. He has diabetes. He has been reported to be more sleepier than usual. Upon ER evaluation he was tachycardic on arrival blood pressure was adequate. Laboratory workup revealed WBC of 10.4 hemoglobin of 9.8 platelet count 253. Chem panel shows sodium of 132 potassium 4.4 chloride 98 bicarbonate 23 BUN 40 creatinine 2.41 blood sugar of 473. INR was 1.2. Lactic acid was normal at 1.5 TSH 1.74. Ethyl alcohol less than 10. Influenza RSV COVID swab was negative. CK level elevated at 4074 LFTs were only mildly elevated. Urinalysis was negative for infection. UDS was negative except for opiates. VBG was done which showed 7.37/39/28/22. EKG showed sinus tachycardia Chest x-ray showed no acute cardiopulmonary abnormality CT head with no acute intracranial abnormality. CTA chest abdomen pelvis was performed which showed no PE or other acute intra abdominal pelvic process. Mild emphysema noted with scattered pulmonary nodules largest measuring 8-9 mm in right lower lobe. Splenomegaly and prostatomegaly noted. He has received 30 mL/kg IV fluid in the ER. And has been placed on maintenance as well. Patient is admitted in the setting for further treatment. Review of Systems Review of Systems: - CONSTITUTIONAL: Denies weight loss, fever and chills. - HEENT: Denies changes in vision and hearing - RESPIRATORY: Denies SOB and cough. - CV: Denies palpitations and CP. - GI: Denies abdominal pain, nausea, vomiting and diarrhea. - : Denies dysuria and urinary frequency. - MSK: Denies myalgia and joint pain. - SKIN: Denies rash and pruritus. - NEUROLOGICAL: Denies headache and syncope. Reports generalized weakness - PSYCHIATRIC: Denies recent changes in mood. Denies anxiety and depression. Meds Home Medications and Allergies Home Medications ?Medication ?Instructions ?Recorded ?Confirmed ?Type acetaminophen 300 mg-codeine 60 mg 1 tablet PO TID 06/18/25 06/18/25 History tablet furosemide 40 mg tablet (Lasix) 40 mg PO DAILY 06/18/25 06/18/25 History metformin 500 mg tablet 500 mg PO BID 06/18/25 06/18/25 History Allergies Allergy/AdvReac Type Severity Reaction Status Date / Time hydrocodone Allergy Mild Swelling Verified 06/18/25 12:12 ketorolac (From Toradol) Allergy Unknown Unknown Verified 06/18/25 12:12 NSAIDS (Non-Steroidal Allergy Unknown Unknown Verified 06/18/25 12:12 Anti-Inflamma Vital Signs Vital Signs - 24 hr 06/18/25 11:01 06/18/25 13:49 06/18/25 16:08 Temperature 98.1 F Pulse Rate 115 H 102 H 99 Respiratory Rate 13 20 18 Blood Pressure 158/67 H 148/66 H 127/82 Pulse Oximetry 98 100 97 Oxygen Delivery Room Air Exam Narrative: GENERAL: The patient is well developed, not in acute distress HEENT: Nonicteric sclerae, PERRLA, EOMI. Oropharynx clear. Moist mucous membranes. Conjunctivae appear well perfused. CHEST: Chest wall is nontender. HEART: Regular rate and rhythm without murmur, rubs, or gallops LUNGS: Clear to auscultation bilaterally. no respiratory distress ABDOMEN: Soft, positive bowel sounds, non-tender, no organomegaly. SKIN: No rash, no excessive bruising, petechiae, or purpura. NEUROLOGIC: Cranial nerves II-XII intact, alert and oriented x 3 but slightly somnolent however answering appropriately, no gross motor deficits EXTREMITIES: no edema, cyanosis or clubbing H&P: Results Labs Labs: Short CBC 06/18/25 Range/Units 11:53 WBC 10.4 H (4.5-10.0) K/mm3 Hgb 9.8 L (14.0-18.0) g/dL Hct 30.0 L (42.0-52.0) % Plt Count 253 (150-375) k/mm3 [facility] 06/18/25 11:54 Sodium 132 L Potassium 4.4 Chloride 98 Carbon Dioxide 23 BUN 40 H Creatinine 2.41 H Glucose 473 H Calcium 8.7 Cardiac Enzymes 06/18/25 06/18/25 Range/Units 11:54 14:40 Total Creatine Kinase 4074 H (55-170) U/L Troponin I < 0.012 < 0.012 (0.000-0.034) ng/mL Liver Function 06/18/25 Range/Units 11:54 Total Bilirubin 1.0 (0.2-1.3) mg/dL AST 70 H (17-59) U/L ALT 23 (6-50) U/L Alkaline Phosphatase 164 H (38-126) U/L Albumin 3.9 (3.5-5.1) g/dL Urine 06/18/25 Range/Units 13:46 Urine Color Yellow (Yellow) Urine Appearance Clear (Clear) Urine pH 5.5 (5.0-9.0) Ur Specific [place] 1.020 (1.001-1.035) Urine Protein 2+ H (Negative) mg/dL Urine Glucose (UA) 3+ H (Negative) mg/dL Assessment and Plan Assessment and plan (1) Acute kidney injury: Code(s): N17.9 - Acute kidney failure, unspecified Status: Acute (2) Dehydration: Code(s): E86.0 - Dehydration Status: Acute (3) Rhabdomyolysis: Code(s): M62.82 - Rhabdomyolysis Status: Acute Plan This is a 70-year-old male who presented with generalized weakness. Patient spent the last week in [facility] with his mariely mas. They have been driving back home across the country and has been feeling weak throughout the dry. Two days ago he was too weak to get out of chair and hence called EMS to get him up but he did not seek medical care. Today while sitting on the chair in the hotel and he was unable to get up and hence called EMS again. He denied any headache fever chest pain difficulty breathing abdominal pain or urinary symptoms. No use of drugs or alcohol. He has diabetes. Upon ER evaluation he was tachycardic on arrival blood pressure was adequate. He received IV fluid Laboratory workup revealed WBC of 10.4 hemoglobin of 9.8 platelet count 253. Chem panel shows sodium of 132 potassium 4.4 chloride 98 bicarbonate 23 BUN 40 creatinine 2.41 blood sugar of 473. INR was 1.2. Lactic acid was normal at 1.5 TSH 1.74. Ethyl alcohol less than 10. Influenza RSV COVID swab was negative. CK level elevated at 4074 LFTs were only mildly elevated. Urinalysis was negative for infection. UDS was negative except for opiates. VBG was done which showed 7.37/39/28/22. EKG showed sinus tachycardia Chest x-ray showed no acute cardiopulmonary abnormality CT head with no acute intracranial abnormality. CTA chest abdomen pelvis was performed which showed no PE or other acute intra abdominal pelvic process. Mild emphysema noted with scattered pulmonary nodules largest measuring 8-9 mm in right lower lobe. Splenomegaly and prostatomegaly noted. He has received 30 mL/kg IV fluid in the ER. And has been placed on maintenance as well. Patient is admitted in the setting for further treatment. Generalized weakness/confusion CT head negative likely related to BLAISE/appt 2/hyperglycemia PT OT to see BLAISE baseline unknown creatinine of 2.[address] with no hydro. Renal ultrasound ordered. Continue IV fluids Rhabdomyolysis with CK level elevated at 4074. Continue IV fluid and recheck CK Type 2 diabetes with elevated blood sugar. Check A1c and insulin regimen Chronic pain due to osteoarthritis on Tylenol 4. Will hold that due to confusion Anemia hemoglobin of 9.8 no baseline available no signs of bleeding. Stool occult blood and other iron studies/vitamin B12 and folic acid will be ordered. DVT prophylaxis SCDs Code status full code Hospitalist [facility] Advance Care Plan I have confirmed that the patient's Advanced Care Plan is present, code status is documented, or surrogate decision maker is listed in patient medical record.: Yes Medication Reconciliation I have utilized all available resources to obtain, update and review the patients current medications (includes all prescriptions, OTC, herbals, cannabis, and nutritional supplements).: Yes
--- NOTE | 2025-06-18 17:26 | PC.NURSE ---
Meal tray ordered for the pt. to be taken to 3rd med/surg.
[2025-06-18 17:54] LABS: Hemoglobin A1C 8.7 % (<5.7)
[2025-06-18 18:31] VITALS: BMI 31.6
--- NOTE | 2025-06-18 18:31 | ADMGEN ---
This patient, Connor Shahid, was admitted to [facility] Surg Room 324-02. Patient/family oriented to hospital policies and general routines including ID bracelet, bed and alarms, visiting hours, pain management, procedures, bathroom and other care routines, personal items, smoking policy, room service/diet, and visiting hours. Information on how to activate the Rapid Response Team has been discussed. Patient/Family are encouraged to report perceived risks to care and to ask questions if they do not understand what they are told or what they should do. received report from ever
[2025-06-18] MEDS: SODIUM CHLORIDE 0.9% IV 1,000 ML 125 ML IV CONT (18:40)
[2025-06-18 18:55] LABS: Immature Reticulocyte Fraction 20.8 % (3.0-15.9); Reticulocyte Hemoglobin Conten 31.1 pg (28.2-36.6); Reticulocytes Absolute 0.07 10^6/uL (0.02-0.10)
[2025-06-18 19:57] LABS: Vitamin B12 229.0 pg/mL (239-931)
[2025-06-18 20:00] VITALS: PULSE 88
[2025-06-18 20:56] VITALS: BP 146/64; PULSE 87; RESP 18; TEMP 36.4; O2SAT 100
[2025-06-18] MEDS: INSULIN ASPART (*BKC) 100 UNITS/ML SUB-Q (22:27)
[2025-06-19] VITALS (9 sets, daily range): BP systolic 105–158; BP diastolic 61–70; PULSE 72–100; RESP 18; TEMP 36.6–36.8; O2SAT 99–100
[2025-06-19] MEDS: SODIUM CHLORIDE 0.9% IV 1,000 ML 125 ML IV CONT ×2 (03:54→11:15)
[2025-06-19 06:49] LABS: Hematocrit 26.4 % (42.0-52.0); Hemoglobin 8.2 g/dL (14.0-18.0); Immature Granulocyte Percent A 0.5 % (0-0.5); Lymphocytes Absolute Auto 0.74 K/mm3 (0.9-3.2); Mean Corpuscular HGB Conc 31.1 g/dl (32-36); Mean Corpuscular Hemoglobin 30.6 pg (26-34); Mean Corpuscular Volume 98.5 fl (80-100); Nucleated Red Blood Cells Absolute Auto 0.000 K/mm3 (0.0-0.012); Nucleated Red Blood Cells Perc 0.0 % (0.0-0.2); Platelet Count Result 188 k/mm3 (150-375); Red Blood Count 2.68 M/mm3 (4.6-6.20); White Blood Count 6.4 K/mm3 (4.5-10.0)
[2025-06-19 07:07] LABS: Iron 11 ug/dL (49-181)
[2025-06-19 07:18] LABS: Percent Iron Saturation 5 % (20-50)
[2025-06-19 07:20] LABS: Alanine Aminotransferase 18 U/L (6-50); Albumin Level 3.0 g/dL (3.5-5.1); Alkaline Phosphatase 124 U/L (38-126); Anion Gap 6 mmol/L (4-12); Aspartate Amino Transferase 43 U/L (17-59); Bilirubin,Total 0.7 mg/dL (0.2-1.3); Blood Urea Nitrogen 31 mg/dL (9-20); Calcium 8.2 mg/dL (8.4-10.2); Carbon Dioxide 22 mmol/L (22-30); Chloride 105 mmol/L (98-107); Creatine Kinase 1078 U/L (55-170); Estimated CRCL calculation 35 ml/min; Estimated Glomerular Filt Rate 34; Glucose 334 mg/dL (65-110); Magnesium 2.3 mg/dL (1.6-2.3); Potassium 3.9 mmol/L (3.4-5.0); Sodium 133 mmol/L (137-145); Total Protein 6.3 g/dL (6.3-8.2)
[2025-06-19] MEDS: INSULIN ASPART (*BKC) 100 UNITS/ML SUB-Q ×5 (08:21→17:08)
--- NOTE | 2025-06-19 09:00 | WPDCDIQUERY2 ---
CDI Query Clarification Request 1) Please clarify type of rhabdomyolysis if known: ? Traumatic or muscle compression (e.g., crush syndrome or prolonged immobilization) ? Non-traumatic exertional (e.g., marked exertion in untrained individuals, hyperthermia, or metabolic myopathies) ? Non-traumatic no exertional (e.g., drugs or toxins, infections, or electrolyte disorders) This is a 70-year-old male who presented with generalized weakness and confusion. Patient spent the last week in [place] with his . They have been driving back home across the country and has been feeling weak throughout the drive. Two days ago he was too weak to get out of chair and hence called EMS to get him up but he did not seek medical care. Today while sitting on the chair in the hotel and he was unable to get up and hence called EMS again. He denied any headache fever chest pain difficulty breathing abdominal pain or urinary symptoms. No use of drugs or alcohol. He has diabetes. He has been reported to be more sleepier than usual. Upon ER evaluation he was tachycardic on arrival blood pressure was adequate. Laboratory workup revealed WBC of 10.4 hemoglobin of 9.8 platelet count 253. Chem panel shows sodium of 132 potassium 4.4 chloride 98 bicarbonate 23 BUN 40 creatinine 2.41 blood sugar of 473. INR was 1.2. Lactic acid was normal at 1.5 TSH 1.74. Ethyl alcohol less than 10. Influenza RSV COVID swab was negative. CK level elevated at 4074 LFTs were only mildly elevated. Urinalysis was negative for infection. (1) Acute kidney injury: Code(s): N17.9 - Acute kidney failure, unspecified Status: Acute (2) Dehydration: Code(s): E86.0 - Dehydration Status: Acute (3) Rhabdomyolysis: Code(s): M62.82 - Rhabdomyolysis Status: Acute Plan This is a 70-year-old male who presented with generalized weakness. Patient spent the last week in [place] with his mariely mas. They have been driving back home across the country and has been feeling weak throughout the dry. Two days ago he was too weak to get out of chair and hence called EMS to get him up but he did not seek medical care. Today while sitting on the chair in the hotel and he was unable to get up and hence called EMS again. He denied any headache fever chest pain difficulty breathing abdominal pain or urinary symptoms. No use of drugs or alcohol. He has diabetes. Upon ER evaluation he was tachycardic on arrival blood pressure was adequate. He received IV fluid Laboratory workup revealed WBC of 10.4 hemoglobin of 9.8 platelet count 253. Chem panel shows sodium of 132 potassium 4.4 chloride 98 bicarbonate 23 BUN 40 creatinine 2.41 blood sugar of 473. INR was 1.2. Lactic acid was normal at 1.5 TSH 1.74. Ethyl alcohol less than 10. Influenza RSV COVID swab was negative. CK level elevated at 4074 LFTs were only mildly elevated. Urinalysis was negative for infection. UDS was negative except for opiates. VBG was done which showed 7.37/39/28/22. <Janeth Tim RN - Last Filed: 06/19/25 09:03> Clarified Diagnosis Clarified Diagnosis: Nontraumatic cause, unclear etiology, traumatic or viral <Laurence Cabrera APRN - Last Filed: 07/04/25 19:45>
--- NOTE | 2025-06-19 10:38 | PM.IMPN ---
Progress Note: A&P Assessment and Plan (1) Acute kidney injury: Code(s): N17.9 - Acute kidney failure, unspecified Status: Acute (2) Dehydration: Code(s): E86.0 - Dehydration Status: Acute (3) Rhabdomyolysis: Code(s): M62.82 - Rhabdomyolysis Status: Acute Plan This is a 70-year-old male who presented with generalized weakness. Patient spent the last week in [facility] with his mariely mas. They have been driving back home across the country and has been feeling weak throughout the dry. Two days ago he was too weak to get out of chair and hence called EMS to get him up but he did not seek medical care. Today while sitting on the chair in the hotel and he was unable to get up and hence called EMS again. He denied any headache fever chest pain difficulty breathing abdominal pain or urinary symptoms. No use of drugs or alcohol. He has diabetes. Upon ER evaluation he was tachycardic on arrival blood pressure was adequate. He received IV fluid Laboratory workup revealed WBC of 10.4 hemoglobin of 9.8 platelet count 253. Chem panel shows sodium of 132 potassium 4.4 chloride 98 bicarbonate 23 BUN 40 creatinine 2.41 blood sugar of 473. INR was 1.2. Lactic acid was normal at 1.5 TSH 1.74. Ethyl alcohol less than 10. Influenza RSV COVID swab was negative. CK level elevated at 4074 LFTs were only mildly elevated. Urinalysis was negative for infection. UDS was negative except for opiates. VBG was done which showed 7.37/39/28/22. He has received 30 mL/kg IV fluid in the ER. And has been placed on maintenance as well. Patient is admitted in the setting for further treatment. EKG showed sinus tachycardia Chest x-ray showed no acute cardiopulmonary abnormality CT head with no acute intracranial abnormality. CTA chest abdomen pelvis was performed which showed no PE or other acute intra abdominal pelvic process. Mild emphysema noted with scattered pulmonary nodules largest measuring 8-9 mm in right lower lobe. Splenomegaly and prostatomegaly noted. Generalized weakness/confusion CT head negative likely related to BLAISE/appt 2/hyperglycemia PT OT to see BLAISE baseline unknown creatinine of 2.[address] with no hydro. Renal ultrasound ordered. Continue IV fluids Rhabdomyolysis with CK level elevated at 4074. Continue IV fluid and recheck CK Type 2 diabetes with elevated blood sugar Elevated blood sugars. HgbA1c 8.9 --Has never taken insulin before. Start Lantus 15, lispro 5 TID with meals. SSI Chronic pain due to osteoarthritis on Tylenol 4. Will hold that due to confusion Anemia hemoglobin of 9.8 no baseline available no signs of bleeding. Stool occult blood and other iron studies/vitamin B12 and folic acid will be ordered. DVT prophylaxis SCDs Code status full code Time Spent With Patient Time: 57 minutes Subjective Date/time seen: 06/19/25 10:38 Interval history: Overnight events Blood sugars still elevated--started basal/bolus 15/5 TID. Metformin on hold. B12 229. Denies alcohol use Hasn't used insulin before, consult community educator. Patient's may help Reports eating more high carb and calorie foods in [place] Worked with therapy and feels back to baseline strength Reason for hospitalization 70 y/o man admitted for weakness and confusion after a trip to [facility] last week with his . Blood sugars elevated on arrival to [facility]. Head CT no acute findings. Exam Narrative: General - Awake and alert. No acute distress Eyes - PERRLA, EOM intact ENT - No thrush, No erythema Neck - No noticeable or palpable swelling Lymph Nodes - No lymphadenopathy Cardiovascular - RRR no m/r/g, no JVD Lungs: Clear to auscultation, No wheezing, use of accessory muscles, no crackles Skin - Skin warm and dry, no wounds or rashes Abdomen - Normal bowel sounds, abdomen soft and nontender Extremities - No edema, cyanosis or clubbing Musculoskeletal - 5/5 strength, normal range of motion, no swollen or erythematous joints. Neurological ? Alert and oriented x 3, CN 2-12 grossly intact. Psych: Normal mood and affect Objective Data Vital Signs Vital Signs: Vital Signs - 24 hr 06/18/25 11:01 06/18/25 13:49 06/18/25 16:08 Temperature 98.1 F Pulse Rate 115 H 102 H 99 Respiratory Rate 13 20 18 Blood Pressure 158/67 H 148/66 H 127/82 Pulse Oximetry 98 100 97 Oxygen Delivery Room Air 06/18/25 18:00 06/18/25 20:00 06/18/25 20:00 Temperature Pulse Rate 88 Respiratory Rate Blood Pressure Pulse Oximetry Oxygen Delivery Room Air Room Air 06/18/25 20:56 06/19/25 00:00 06/19/25 04:00 Temperature 97.6 F Pulse Rate 87 100 88 Respiratory Rate 18 Blood Pressure 146/64 H Pulse Oximetry 100 Oxygen Delivery 06/19/25 04:31 06/19/25 08:00 Temperature 97.9 F Pulse Rate 89 74 Respiratory Rate 18 Blood Pressure 158/63 H Pulse Oximetry 99 Oxygen Delivery Intake/Output Intake/Output: Intake & Output 06/16/25 06/17/25 06/18/25 06/19/25 23:59 23:59 23:59 23:59 Intake Total 3700 1000 Output Total 1200 Balance 2500 1000 Meds/Results Medications: Active Medications Generic Name Dose Route Start Last Admin Trade Name Freq PRN Reason Stop Dose Admin Dextrose 12.5 gm 06/18/25 17:23 Dextrose 50% 25 Gm/50 Ml Syringe IV PUSH PRN PRN Hypoglycemia Protocol Glucagon 1 mg 06/18/25 17:23 Glucagon For Inj 1 Mg Vial IM PRN PRN Hypoglycemia Protocol Glucose 15 gm 06/18/25 17:23 Glucose Oral Gel 15 Gm Of Glucse In 37.5 Gm Tube PO PRN PRN Hypoglycemia Protocol Dextrose 1,000 mls @ 100 mls/hr 06/18/25 17:23 Dextrose 5% 1,000 Ml IVPB PRN PRN Hypoglycemia Protocol Sodium Chloride 1,000 mls @ 125 mls/hr 06/18/25 18:25 06/19/25 03:54 Normal Saline Iv IV CONT 125 mls/hr .Q8H ROCHELLE Administration Insulin Aspart 2 - 5 units 06/19/25 08:00 06/19/25 08:21 Insulin Aspart (*Bkc) 100 Units/Ml SUB-Q 4 units TIDWM ROCHELLE Administration Protocol Insulin Aspart 1 - 2 units 06/18/25 21:00 06/18/25 22:27 Insulin Aspart (*Bkc) 100 Units/Ml SUB-Q 2 units HS ROCHELLE Administration Protocol Radiology Results: ITS Impressions Chest X-Ray 06/18/25 12:22 Impression: No acute cardiopulmonary abnormality. Head CT 06/18/25 13:08 IMPRESSION: 1. No acute intracranial findings. Chest/Abdomen/Pelvis CTA 06/18/25 13:16 IMPRESSION: 1. No pulmonary embolism, other acute cardiopulmonary disease or acute intra-abdominal/pelvic process. 2. Mild emphysema with several scattered pulmonary nodules the largest measuring 8-9 mm in the right lower lobe. Recommend 3 month follow-up low-dose noncontrast chest CT. Correlation with any prior outside imaging if available would also be helpful. 3. Splenomegaly. 4. Prostatomegaly. Renal Ultrasound 06/18/25 18:10 Impression: 1: Unremarkable renal ultrasound. No stones, masses or hydronephrosis. Labs Labs: Laboratory Results - last 24 hr 06/18/25 06/18/25 06/18/25 11:06 11:49 11:50 WBC RBC Hgb Hct MCV MCH MCHC RDW Plt Count MPV Immature Gran % (Auto) Neut % (Auto) Lymph % (Auto) Mcdonough % (Auto) Eos % (Auto) Baso % (Auto) Lymph # (Auto) Mcdonough # (Auto) Eos # (Auto) Baso # (Auto) Abs Immat Gran (auto) Absolute Neuts (auto) Absolute Nucleated RBC Nucleated RBC % Absolute Retic 0.07 Percent Retic 2.13 Immature Retic Fraction 20.8 H Retic Hgb Content 31.1 PT INR APTT VBG pH 7.371 VBG pCO2 39.0 L VBG pO2 28.3 L VBG HCO3 22.1 L O2 Delivery Device Room air O2 Liters/Min 0.0 FiO2 21 Sodium Potassium Chloride Carbon Dioxide Anion Gap BUN Creatinine Estim Creat Clear Calc Estimated GFR Glucose POC Capillary Glucose 426 H Hemoglobin A1c 8.7 H Lactic Acid Calcium Phosphorus Magnesium Iron TIBC % Saturation Total Bilirubin AST ALT Alkaline Phosphatase Total Creatine Kinase Troponin I Total Protein Albumin Lipase Vitamin B12 Folate TSH (Reflex) Urine Color Urine Appearance Urine pH Ur Specific [place] Urine Protein Urine Glucose (UA) Urine Ketones Ur Blood (Man) Urine Nitrate Urine Bilirubin Urine Urobilinogen Leukocyte Esterase Rfl Urine RBC Urine WBC Ur Squamous Epith Cells Urine Bacteria Urine Casts Urine Opiates Screen Urine Methadone Screen Ur Barbiturates Screen Ur Phencyclidine Scrn Ur Amphetamine Screen U Benzodiazepines Scrn Urine Cocaine Screen U Cannabinoids Screen Ethyl Alcohol Influenza A (RT-PCR) Negative Influenza B (RT-PCR) Negative RSV (RT-PCR) Negative SARS-CoV-2 RNA (RT-PCR) Negative 06/18/25 06/18/25 06/18/25 11:53 11:54 13:46 WBC 10.4 H RBC 3.12 L Hgb 9.8 L Hct 30.0 L MCV 96.2 MCH 31.4 MCHC 32.7 RDW 13.7 Plt Count 253 MPV 9.5 Immature Gran % (Auto) 0.7 H Neut % (Auto) 88.4 H Lymph % (Auto) 5.6 L Mcdonough % (Auto) 4.8 Eos % (Auto) 0.3 Baso % (Auto) 0.2 Lymph # (Auto) 0.58 L Mcdonough # (Auto) 0.5 Eos # (Auto) 0.0 Baso # (Auto) 0.0 Abs Immat Gran (auto) 0.07 H Absolute Neuts (auto) 9.2 H Absolute Nucleated RBC 0.000 Nucleated RBC % 0.0 Absolute Retic Percent Retic Immature Retic Fraction Retic Hgb Content PT 15.1 H INR 1.2 APTT 28.5 VBG pH VBG pCO2 VBG pO2 VBG HCO3 O2 Delivery Device O2 Liters/Min FiO2 Sodium 132 L Potassium 4.4 Chloride 98 Carbon Dioxide 23 Anion Gap 11 BUN 40 H Creatinine 2.41 H Estim Creat Clear Calc 28 Estimated GFR 27 L Glucose 473 H POC Capillary Glucose Hemoglobin A1c Lactic Acid 1.5 Calcium 8.7 Phosphorus 3.4 Magnesium 2.2 Iron TIBC % Saturation Total Bilirubin 1.0 AST 70 H ALT 23 Alkaline Phosphatase 164 H Total Creatine Kinase 4074 H Troponin I < 0.012 Total Protein 7.9 Albumin 3.9 Lipase 43 Vitamin B12 Folate TSH (Reflex) 1.740 Urine Color Yellow Urine Appearance Clear Urine pH 5.5 Ur Specific [place] 1.020 Urine Protein 2+ H Urine Glucose (UA) 3+ H Urine Ketones Trace H Ur Blood (Man) 3+ H Urine Nitrate Negative Urine Bilirubin Negative Urine Urobilinogen 1.0 Leukocyte Esterase Rfl Negative Urine RBC 0-2 Urine WBC 0-5 Ur Squamous Epith Cells None seen Urine Bacteria None seen Urine Casts 3-5 Urine Opiates Screen Positive A Urine Methadone Screen Negative Ur Barbiturates Screen Negative Ur Phencyclidine Scrn Negative Ur Amphetamine Screen Negative U Benzodiazepines Scrn Negative Urine Cocaine Screen Negative U Cannabinoids Screen Negative Ethyl Alcohol < 10 Influenza A (RT-PCR) Influenza B (RT-PCR) RSV (RT-PCR) SARS-CoV-2 RNA (RT-PCR) 06/18/25 06/18/25 06/18/25 14:40 16:24 20:52 WBC RBC Hgb Hct MCV MCH MCHC RDW Plt Count MPV Immature Gran % (Auto) Neut % (Auto) Lymph % (Auto) Mcdonough % (Auto) Eos % (Auto) Baso % (Auto) Lymph # (Auto) Mcdonough # (Auto) Eos # (Auto) Baso # (Auto) Abs Immat Gran (auto) Absolute Neuts (auto) Absolute Nucleated RBC Nucleated RBC % Absolute Retic Percent Retic Immature Retic Fraction Retic Hgb Content PT INR APTT VBG pH VBG pCO2 VBG pO2 VBG HCO3 O2 Delivery Device O2 Liters/Min FiO2 Sodium Potassium Chloride Carbon Dioxide Anion Gap BUN Creatinine Estim Creat Clear Calc Estimated GFR Glucose POC Capillary Glucose 362 H 368 H Hemoglobin A1c Lactic Acid Calcium Phosphorus Magnesium Iron TIBC % Saturation Total Bilirubin AST ALT Alkaline Phosphatase Total Creatine Kinase Troponin I < 0.012 Total Protein Albumin Lipase Vitamin B12 229.0 L Folate 5.7 TSH (Reflex) Urine Color Urine Appearance Urine pH Ur Specific [place] Urine Protein Urine Glucose (UA) Urine Ketones Ur Blood (Man) Urine Nitrate Urine Bilirubin Urine Urobilinogen Leukocyte Esterase Rfl Urine RBC Urine WBC Ur Squamous Epith Cells Urine Bacteria Urine Casts Urine Opiates Screen Urine Methadone Screen Ur Barbiturates Screen Ur Phencyclidine Scrn Ur Amphetamine Screen U Benzodiazepines Scrn Urine Cocaine Screen U Cannabinoids Screen Ethyl Alcohol Influenza A (RT-PCR) Influenza B (RT-PCR) RSV (RT-PCR) SARS-CoV-2 RNA (RT-PCR) 06/19/25 06/19/25 06:16 08:01 WBC 6.4 RBC 2.68 L Hgb 8.2 L Hct 26.4 L MCV 98.5 MCH 30.6 MCHC 31.1 L RDW 13.7 Plt Count 188 MPV 9.7 Immature Gran % (Auto) 0.5 Neut % (Auto) 80.1 H Lymph % (Auto) 11.7 L Mcdonough % (Auto) 6.5 Eos % (Auto) 0.9 Baso % (Auto) 0.3 Lymph # (Auto) 0.74 L Mcdonough # (Auto) 0.4 Eos # (Auto) 0.1 Baso # (Auto) 0.0 Abs Immat Gran (auto) 0.03 Absolute Neuts (auto) 5.1 Absolute Nucleated RBC 0.000 Nucleated RBC % 0.0 Absolute Retic Percent Retic Immature Retic Fraction Retic Hgb Content PT INR APTT VBG pH VBG pCO2 VBG pO2 VBG HCO3 O2 Delivery Device O2 Liters/Min FiO2 Sodium 133 L Potassium 3.9 Chloride 105 Carbon Dioxide 22 Anion Gap 6 BUN 31 H Creatinine 1.98 H Estim Creat Clear Calc 35 Estimated GFR 34 L Glucose 334 H POC Capillary Glucose 318 H Hemoglobin A1c Lactic Acid Calcium 8.2 L Phosphorus Magnesium 2.3 Iron 11 L TIBC 239 L % Saturation 5 L Total Bilirubin 0.7 AST 43 ALT 18 Alkaline Phosphatase 124 Total Creatine Kinase 1078 H Troponin I Total Protein 6.3 Albumin 3.0 L Lipase Vitamin B12 Folate TSH (Reflex) Urine Color Urine Appearance Urine pH Ur Specific [place] Urine Protein Urine Glucose (UA) Urine Ketones Ur Blood (Man) Urine Nitrate Urine Bilirubin Urine Urobilinogen Leukocyte Esterase Rfl Urine RBC Urine WBC Ur Squamous Epith Cells Urine Bacteria Urine Casts Urine Opiates Screen Urine Methadone Screen Ur Barbiturates Screen Ur Phencyclidine Scrn Ur Amphetamine Screen U Benzodiazepines Scrn Urine Cocaine Screen U Cannabinoids Screen Ethyl Alcohol Influenza A (RT-PCR) Influenza B (RT-PCR) RSV (RT-PCR) SARS-CoV-2 RNA (RT-PCR) Quality VTE Prophylaxis VTE prophylaxis: mechanical ordered Hospitalist MIPS Advance Care Plan I have confirmed that the patient's Advanced Care Plan is present, code status is documented, or surrogate decision maker is listed in patient medical record.: Yes Medication Reconciliation I have utilized all available resources to obtain, update and review the patients current medications (includes all prescriptions, OTC, herbals, cannabis, and nutritional supplements).: Yes
[2025-06-19] MEDS: INSULIN GLARGINE (*BKC) 100 UNITS/ML 15 UNITS SUB-Q (11:14)
[2025-06-19] MEDS: CYANOCOBALAMIN INJ 1,000 MCG/ML VIAL 1000 MCG IM (11:14)
[2025-06-19 13:23] LABS: IFOB Positive Control Positive; Immunochemical Fecal Occult Bl Negative (N)
--- NOTE | 2025-06-19 23:10 | PC.NURSE ---
06/19/25 2148 Patient refusing IVF at this time. Educated patient on reason IVF were ordered and patient still refusing. Yuko Parkinson NP aware.
[2025-06-20] VITALS: PULSE 74
[2025-06-20 00:43] VITALS: BP 112/73; PULSE 69; RESP 18; TEMP 36.4; O2SAT 100
[2025-06-20 04:00] VITALS: PULSE 88
[2025-06-20 08:01] VITALS: PULSE 74
[2025-06-20 09:08] LABS: Hemoglobin A1C 8.9 % (<5.7)
[2025-06-20] MEDS: INSULIN ASPART (*BKC) 100 UNITS/ML SUB-Q ×3 (09:22→12:28)
[2025-06-20] MEDS: CYANOCOBALAMIN 1,000 MCG TABLET 1000 MCG PO (09:23)
--- NOTE | 2025-06-20 10:48 | P.PNIM_ITS ---
Progress Note: A&P Assessment and Plan (1) Acute kidney injury: Code(s): N17.9 - Acute kidney failure, unspecified Status: Acute (2) Dehydration: Code(s): E86.0 - Dehydration Status: Acute (3) Rhabdomyolysis: Code(s): M62.82 - Rhabdomyolysis Status: Acute Plan This is a 70-year-old male who presented with generalized weakness. Patient spent the last week in [facility] with his mariely mas. They have been driving back home across the country and has been feeling weak throughout the dry. Two days ago he was too weak to get out of chair and hence called EMS to get him up but he did not seek medical care. Today while sitting on the chair in the hotel and he was unable to get up and hence called EMS again. He denied any headache fever chest pain difficulty breathing abdominal pain or urinary symptoms. No use of drugs or alcohol. He has diabetes. Upon ER evaluation he was tachycardic on arrival blood pressure was adequate. He received IV fluid Laboratory workup revealed WBC of 10.4 hemoglobin of 9.8 platelet count 253. Chem panel shows sodium of 132 potassium 4.4 chloride 98 bicarbonate 23 BUN 40 creatinine 2.41 blood sugar of 473. INR was 1.2. Lactic acid was normal at 1.5 TSH 1.74. Ethyl alcohol less than 10. Influenza RSV COVID swab was negative. CK level elevated at 4074 LFTs were only mildly elevated. Urinalysis was negative for infection. UDS was negative except for opiates. VBG was done which showed 7.37/39/28/22. EKG showed sinus tachycardia Chest x-ray showed no acute cardiopulmonary abnormality CT head with no acute intracranial abnormality. CTA chest abdomen pelvis was performed which showed no PE or other acute intra abdominal pelvic process. Mild emphysema noted with scattered pulmonary nodules largest measuring 8-9 mm in right lower lobe. Splenomegaly and prostatomegaly noted. He has received 30 mL/kg IV fluid in the ER. And has been placed on maintenance as well. Patient is admitted in the setting for further treatment. Generalized weakness/confusion CT head negative likely related to BLAISE/appt 2/hyperglycemia PT OT to see BLAISE baseline unknown creatinine of 2.[address] with no hydro. Renal ultrasound ordered. Continue IV fluids Rhabdomyolysis with CK level elevated at 4074. Continue IV fluid and recheck CK Type 2 diabetes with elevated blood sugar. Check A1c and insulin regimen Chronic pain due to osteoarthritis on Tylenol 4. Will hold that due to confusion Anemia hemoglobin of 9.8 no baseline available no signs of bleeding. Stool occult blood and other iron studies/vitamin B12 and folic acid will be ordered. DVT prophylaxis SCDs Code status full code Subjective Date/time seen: 06/20/25 10:48 Interval history: Overnight events Blood sugars still elevated--started basal/bolus 15/5 TID. Metformin on hold. B12 229. Denies alcohol use Hasn't used insulin before, consult compliance consultant. Patient's may help Worked with therapy and feels back to baseline strength Reason for hospitalization 70 y/o man admitted for weakness and confusion after a trip to [facility] last week with his . Blood sugars elevated on arrival to [facility]. Head CT no acute findings. Review of Systems Review of Systems: - CONSTITUTIONAL: Denies weight loss, fe antonette and chills. - HEENT: Denies changes in vision and he aring - RESPIRATORY: Denies SOB and cough. - CV: Denies palpitations and CP. - GI: Denies abdominal pain, nausea, vom iting and diarrhea. - : Denies dysuria and urinary frequen cy. - MSK: Denies myalgia and joint pain. - SKIN: Denies rash and pruritus. - NEUROLOGICAL: Denies headache and sync ope. Reports generalized weakness - PSYCHIATRIC: Denies recent changes in mood. Denies anxiety and depression. Exam Narrative: GENERAL: The patient is well developed, not in acute distress HEENT: Nonicteric sclerae, PERRLA, EOMI. Oropharynx clear. Moist mucous membranes. Conjunctivae appear well perfused. CHEST: Chest wall is nontender. HEART: Regular rate and rhythm without murmur, rubs, or gallops LUNGS: Clear to auscultation bilaterally. no respiratory distress ABDOMEN: Soft, positive bowel sounds, non-tender, no organomegaly. SKIN: No rash, no excessive bruising, petechiae, or purpura. NEUROLOGIC: Cranial nerves II-XII intact, alert and oriented x 3 but slightly somnolent however answering appropriately, no gross motor deficits EXTREMITIES: no edema, cyanosis or clubbing Objective Data Vital Signs Vital Signs: Vital Signs - 24 hr 06/19/25 11:47 06/19/25 12:00 06/19/25 14:00 Temperature 98.2 F Pulse Rate 95 85 Respiratory Rate 18 Blood Pressure 105/70 Pulse Oximetry 100 Oxygen Delivery Room Air 06/19/25 14:15 06/19/25 16:00 06/19/25 20:00 Temperature Pulse Rate 85 72 Respiratory Rate Blood Pressure Pulse Oximetry Oxygen Delivery Room Air 06/19/25 20:44 06/20/25 00:00 06/20/25 00:43 Temperature 98.0 F 97.5 F L Pulse Rate 75 74 69 Respiratory Rate 18 18 Blood Pressure 134/61 112/73 Pulse Oximetry 99 100 Oxygen Delivery 06/20/25 04:00 Temperature Pulse Rate 88 Respiratory Rate Blood Pressure Pulse Oximetry Oxygen Delivery Intake/Output Intake/Output: Intake & Output 06/17/25 06/18/25 06/19/25 06/20/25 23:59 23:59 23:59 23:59 Intake Total 3700 2274.8 550 Output Total 1200 Balance 2500 2274.8 550 Meds/Results Medications: Active Medications Generic Name Dose Route Start Last Admin Trade Name Freq PRN Reason Stop Dose Admin Cyanocobalamin 1,000 mcg 06/20/25 09:00 06/20/25 09:23 Cyanocobalamin 1,000 Mcg Tablet PO 1,000 mcg QAM ROCHELLE Administration Dextrose 12.5 gm 06/18/25 17:23 Dextrose 50% 25 Gm/50 Ml Syringe IV PUSH PRN PRN Hypoglycemia Protocol Glucagon 1 mg 06/18/25 17:23 Glucagon For Inj 1 Mg Vial IM PRN PRN Hypoglycemia Protocol Glucose 15 gm 06/18/25 17:23 Glucose Oral Gel 15 Gm Of Glucse In 37.5 Gm Tube PO PRN PRN Hypoglycemia Protocol Dextrose 1,000 mls @ 100 mls/hr 06/18/25 17:23 Dextrose 5% 1,000 Ml IVPB PRN PRN Hypoglycemia Protocol Sodium Chloride 1,000 mls @ 125 mls/hr 06/18/25 18:25 06/20/25 03:01 Normal Saline Iv IV CONT Not Given .Q8H ROCHELLE Insulin Aspart 2 - 5 units 06/19/25 08:00 06/20/25 09:23 Insulin Aspart (*Bkc) 100 Units/Ml SUB-Q 2 units TIDWM ROCHELLE Administration Protocol Insulin Aspart 1 - 2 units 06/18/25 21:00 06/19/25 21:17 Insulin Aspart (*Bkc) 100 Units/Ml SUB-Q Not Given HS [facility] Protocol Insulin Aspart 5 units 06/19/25 12:00 06/20/25 09:22 Insulin Aspart (*Bkc) 100 Units/Ml 0.05 units/kg (5 units) 5 units SUB-Q Administration TIDWM [facility] Radiology Results: ITS Impressions Chest X-Ray 06/18/25 12:22 Impression: No acute cardiopulmonary abnormality. Head CT 06/18/25 13:08 IMPRESSION: 1. No acute intracranial findings. Chest/Abdomen/Pelvis CTA 06/18/25 13:16 IMPRESSION: 1. No pulmonary embolism, other acute cardiopulmonary disease or acute intra- abdominal/pelvic process. 2. Mild emphysema with several scattered pulmonary nodules the largest measuring 8-9 mm in the right lower lobe. Recommend 3 month follow-up low-dose noncontrast chest CT. Correlation with any prior outside imaging if available would also be helpful. 3. Splenomegaly. 4. Prostatomegaly. Renal Ultrasound 06/18/25 18:10 Impression: 1: Unremarkable renal ultrasound. No stones, masses or hydronephrosis. Labs Labs: Laboratory Results - last 24 hr 06/19/25 06/19/25 06/19/25 12:04 12:59 16:49 POC Capillary Glucose 336 H 227 H Hemoglobin A1c Stl Occult Blood (IFOB) Negative 06/19/25 06/20/25 06/20/25 21:16 07:39 07:58 POC Capillary Glucose 164 H 201 H Hemoglobin A1c 8.9 H Stl Occult Blood (IFOB)
[2025-06-20 10:52] LABS: Hematocrit 27.6 % (42.0-52.0); Hemoglobin 8.9 g/dL (14.0-18.0); Immature Granulocyte Percent A 0.9 % (0-0.5); Lymphocytes Absolute Auto 0.82 K/mm3 (0.9-3.2); Mean Corpuscular HGB Conc 32.2 g/dl (32-36); Mean Corpuscular Hemoglobin 31.0 pg (26-34); Mean Corpuscular Volume 96.2 fl (80-100); Nucleated Red Blood Cells Absolute Auto 0.000 K/mm3 (0.0-0.012); Nucleated Red Blood Cells Perc 0.0 % (0.0-0.2); Platelet Count Result 242 k/mm3 (150-375); Red Blood Count 2.87 M/mm3 (4.6-6.20); White Blood Count 4.4 K/mm3 (4.5-10.0)
[2025-06-20 11:14] LABS: Anion Gap 7 mmol/L (4-12); Blood Urea Nitrogen 24 mg/dL (9-20); Calcium 8.5 mg/dL (8.4-10.2); Carbon Dioxide 26 mmol/L (22-30); Chloride 100 mmol/L (98-107); Estimated CRCL calculation 36 ml/min; Estimated Glomerular Filt Rate 34; Glucose 369 mg/dL (65-110); Potassium 3.8 mmol/L (3.4-5.0); Sodium 133 mmol/L (137-145)
[2025-06-20 12:05] VITALS: PULSE 79
--- NOTE | 2025-06-20 12:25 | PM.DS ---
DS: Admitting Diagnosis Discharge Date 06/18/2025 Admitting Diagnosis Weakness DS: Discharge Diagnosis Discharge Diagnosis (1) Uncontrolled diabetes mellitus: Status: Acute (2) Acute kidney injury: Code(s): N17.9 - Acute kidney failure, unspecified Status: Acute (3) Rhabdomyolysis: Code(s): M62.82 - Rhabdomyolysis Status: Acute DS: Summary Hospital Course Reason for hospitalization: Copied from [facility] 06/18: This is a 70-year-old male who presented with generalized weakness and confusion. Patient spent the last week in [facility] with his . They have been driving back home across the country and has been feeling weak throughout the drive. Two days ago he was too weak to get out of chair and hence called EMS to get him up but he did not seek medical care. Today while sitting on the chair in the hotel and he was unable to get up and hence called EMS again. He denied any headache fever chest pain difficulty breathing abdominal pain or urinary symptoms. No use of drugs or alcohol. He has diabetes. He has been reported to be more sleepier than usual. Upon ER evaluation he was tachycardic on arrival blood pressure was adequate. Laboratory workup revealed WBC of 10.4 hemoglobin of 9.8 platelet count 253. Chem panel shows sodium of 132 potassium 4.4 chloride 98 bicarbonate 23 BUN 40 creatinine 2.41 blood sugar of 473. INR was 1.2. Lactic acid was normal at 1.5 TSH 1.74. Ethyl alcohol less than 10. Influenza RSV COVID swab was negative. CK level elevated at 4074 LFTs were only mildly elevated. Urinalysis was negative for infection. UDS was negative except for opiates. VBG was done which showed 7.37/39/28/22. EKG showed sinus tachycardia Chest x-ray showed no acute cardiopulmonary abnormality CT head with no acute intracranial abnormality. CTA chest abdomen pelvis was performed which showed no PE or other acute intra abdominal pelvic process. Mild emphysema noted with scattered pulmonary nodules largest measuring 8-9 mm in right lower lobe. Splenomegaly and prostatomegaly noted. He has received 30 mL/kg IV fluid in the ER. And has been placed on maintenance as well. Patient is admitted in the setting for further treatment. Hospital Course: Connor Shahid was admitted for weakness and confusion after a trip to [facility] last week with his . Blood sugars elevated on arrival to 473. Head CT no acute findings. Suspect elevated blood sugar and dehydration cause of confusion. Mental status back to baseline at discharge. Improved with fluids Type 2 diabetes with elevated blood sugar Elevated blood sugars. HgbA1c 8.9 --Has never taken insulin before. Started Lantus 15, lispro 5 TID with meals. SSI --Discharged with Lantus 25 daily --Metformin held for BLAISE, creatinine clearance. Was improving to 36. Restart as able BLAISE 06/18 Renal ultrasound 1: Unremarkable renal ultrasound. No stones, masses or hydronephrosis. Creatinine 2.41 improved to 1.95 with fluids. Generalized weakness/confusion CT head negative likely related to BLAISE/hyperglycemia. PT/OT consulted BLAISE baseline unknown creatinine of 2.[address] with no hydro. Continued IV fluids Rhabdomyolysis with CK level elevated at 4074. Continue IV fluid and recheck CK. B12 229, started daily B12 Worked with therapy and feels back to baseline strength EKG showed sinus tachycardia Chest x-ray showed no acute cardiopulmonary abnormality CT head with no acute intracranial abnormality. CTA chest abdomen pelvis was performed which showed no PE or other acute intra abdominal pelvic process. Mild emphysema noted with scattered pulmonary nodules largest measuring 8-9 mm in right lower lobe. Splenomegaly and prostatomegaly noted. Chronic pain due to osteoarthritis on Tylenol 4. Will hold that due to confusion. Can resume as needed Anemia hemoglobin of 9.8 no baseline available no signs of bleeding. Stool occult blood and other iron studies/vitamin B12 and folic acid will be ordered. Status at Discharge Cognitive/behavioral status at discharge: A&Ox3 Time Spent with Patient Time attestation: Total time spent providing and/or coordinating discharge services:68 minutes Exam Narrative: General - Awake and alert. No acute distress Eyes - PERRLA, EOM intact ENT - No thrush, No erythema Neck - No noticeable or palpable swelling Lymph Nodes - No lymphadenopathy Cardiovascular - RRR no m/r/g, no JVD Lungs: Clear to auscultation, No wheezing, use of accessory muscles, no crackles Skin - Skin warm and dry, no wounds or rashes Abdomen - Normal bowel sounds, abdomen soft and nontender Extremities - No edema, cyanosis or clubbing Musculoskeletal - 5/5 strength, normal range of motion, no swollen or erythematous joints. Neurological ? Alert and oriented x 3, CN 2-12 grossly intact. Psych: Normal mood and affect DS: Data Data Completed and Pending Labs on day of discharge: Labs from last 24 hours 06/20/25 06/20/25 06/20/25 11:45 10:45 07:58 WBC 4.4 L RBC 2.87 L Hgb 8.9 L Hct 27.6 L MCV 96.2 MCH 31.0 MCHC 32.2 RDW 13.6 Plt Count 242 MPV 9.3 Immature Gran % (Auto) 0.9 H Neut % (Auto) 72.5 Lymph % (Auto) 18.5 [place] % (Auto) 4.7 Eos % (Auto) 2.9 Baso % (Auto) 0.5 Lymph # (Auto) 0.82 L [place] # (Auto) 0.2 Eos # (Auto) 0.1 Baso # (Auto) 0.0 Abs Immat Gran (auto) 0.04 H Absolute Neuts (auto) 3.2 Absolute Nucleated RBC 0.000 Nucleated RBC % 0.0 Sodium 133 L Potassium 3.8 Chloride 100 Carbon Dioxide 26 Anion Gap 7 BUN 24 H Creatinine 1.95 H Estim Creat Clear Calc 36 Estimated GFR 34 L Glucose 369 H POC Capillary Glucose 337 H Hemoglobin A1c 8.9 H Calcium 8.5 Stl Occult Blood (IFOB) 06/20/25 06/19/25 06/19/25 07:39 21:16 16:49 WBC RBC Hgb Hct MCV MCH MCHC RDW Plt Count MPV Immature Gran % (Auto) Neut % (Auto) Lymph % (Auto) [place] % (Auto) Eos % (Auto) Baso % (Auto) Lymph # (Auto) [place] # (Auto) Eos # (Auto) Baso # (Auto) Abs Immat Gran (auto) Absolute Neuts (auto) Absolute Nucleated RBC Nucleated RBC % Sodium Potassium Chloride Carbon Dioxide Anion Gap BUN Creatinine Estim Creat Clear Calc Estimated GFR Glucose POC Capillary Glucose 201 H 164 H 227 H Hemoglobin A1c Calcium Stl Occult Blood (IFOB) 06/19/25 12:59 WBC RBC Hgb Hct MCV MCH MCHC RDW Plt Count MPV Immature Gran % (Auto) Neut % (Auto) Lymph % (Auto) [place] % (Auto) Eos % (Auto) Baso % (Auto) Lymph # (Auto) [place] # (Auto) Eos # (Auto) Baso # (Auto) Abs Immat Gran (auto) Absolute Neuts (auto) Absolute Nucleated RBC Nucleated RBC % Sodium Potassium Chloride Carbon Dioxide Anion Gap BUN Creatinine Estim Creat Clear Calc Estimated GFR Glucose POC Capillary Glucose Hemoglobin A1c Calcium Stl Occult Blood (IFOB) Negative Discharge Plan Discharge Attending physician on discharge: Laurence Cabrera Consulting providers: Kat Martinez; Connor Hess; Bayron Sanchez; Edinson Abdullahi; Moshe Quinteros; Marcio Blanchard Discharging Clinician: Laurence Cabrera Anticipated Discharge Date/Time: 06/20/25 11:18 Patient Disposition: Home Activity: january shower Diet: diabetic Wound Care Instructions: follow printed instructions Discharge Instructions: Follow up with your PCP tomorrow or Tuesday. Check your blood sugars 4 times a day and keep a log. Goal blood sugar is 100-140, but it may be higher while insulin is being adjusted. Drink more water if your blood sugars are elevated. Limit sugars today. If your blood sugars are over 200 twice, or over 300 once, you will need more insulin. If your blood sugar is every less than 70, you will need less insulin and should call your doctor for an adjustment. If your blood sugar is <70, you should drink a juice or 8oz of soda, or piece of candy. Limit carbs with meals (low sugar and starches) Stay well hydrated. You will need repeat labs next week to follow up your kidney function Patient Instructions: Antibiotic Form Patient Language: Belgian Stand Alone Forms: General Discharge Information Follow-up/Referrals: UNKNOWN,DOCTOR [Primary Care Provider] - Call for Appointment Referral Note: Follow up tomorrow if possible, otherwise Tuesday Discharge Medications: New insulin glargine [Lantus Solostar U-100 Insulin] 100 unit/mL (3 mL) insulin pen 25 unit subcut QAM Qty: 15 11RF (DME) pen needle, diabetic [Kaitlin 2nd Gen Pen Needle] 32 gauge x 5/32 needle See Rx Instructions .Route Qty: 100 0RF Rx Instructions: As directed For checking blood sugars 4 times a day. 3 times a day before meals and at bedtime Baqsimi 3 mg/actuation spray,non-aerosol 3 mg intranasal ONCE Qty: 2 3RF Rx Instructions: For blood sugar <70 if unable to eat or drink cyanocobalamin (vitamin B-12) [Vitamin B-12] 1,000 mcg Tablet 1,000 mcg PO QAM Qty: 90 0RF Continued acetaminophen-codeine 300-60 mg tablet 1 tablet PO TID Discontinued metformin 500 mg tablet 500 mg PO BID furosemide [Lasix] 40 mg tablet 40 mg PO DAILY Date of admission: 06/18/25 16:49 Primary Care Provider: UNKNOWN,DOCTOR Admitting Provider: Hernán Arteaga Attending physician on admission: Laurence Cabrera Condition: Stable Quality VTE Prophylaxis VTE prophylaxis: mechanical ordered Hospitalist MIPS Heart Failure (Exclusion) Patient has history of Heart Transplant or Left Ventricular Assistive Device?: No IF YES, STOP HERE Heart Failure (Qualifier) Patient has current or prior documentation of LVEF less than or equal to 40%, or mod/servere depressed LVSF?: No IF NO, STOP HERE
[2025-06-20] MEDS: INSULIN ASPART (*BKC) 100 UNITS/ML 10 UNITS SUB-Q (12:27)
[2025-06-20] MEDS: NICOTINE (*PBKC) 21 MG PATCH 1 PATCH TRANSDERM (12:28)
[2025-06-20 14:10] LABS: Glucose 292 mg/dL (65-110)
--- NOTE | 2025-07-01 15:28 | PCCDE ---
07/01/25: DM educator attempted courtesy call - Message left including direct line call back number and enc'd to talk with HCP re: DSMT. (he is from out of town)
== END 2025-06-20 15:05 | disposition home or self-care (01) | DRG 558 ==
LOC: ANHED 15:25 → ANH3MEDSUR 17:36
PROVIDERS: Admitting Provider Internal Medicine; Emergency Provider Emergency Medicine; Visit Provider Nurse Practitioner Acute Care
DX: M62.82 Rhabdomyolysis (principal); N17.9 Acute kidney failure, unspecified; E86.0 Dehydration; R00.0 Tachycardia, unspecified; Z20.822 Contact with and (suspected) exposure to COVID-19; R16.1 Splenomegaly, not elsewhere classified; E11.65 Type 2 diabetes mellitus with hyperglycemia; M19.90 Unspecified osteoarthritis, unspecified site; L97.509 Non-pressure chronic ulcer of other part of unspecified foot with unspecified severity; J43.8 Other emphysema; Z79.84 Long term (current) use of oral hypoglycemic drugs
CPT/HCPCS: 36415; 70450; 71045; 71275; 74177; 76770; 80048; 80053; 80307; 81001; 82077; 82274; 82550; 82607; 82746; 82803; 82947; 82948; 83036; 83540; 83550; 83605; 83690; 83735; 84100; 84443; 84484; 85025; 85046; 85610; 85730; 87637; 93005; 96360; 96361; 97161; 97165; 99285; A9270; J1815; J3420; J7030; J7120; Q9967